=== PATIENT | male | born 1965 | race American Indian/Alaskan Native ===

== ENCOUNTER 2017-01-09 16:26 | Inpatient (IN) | payer OTHER ==
--- NOTE | 2017-01-09 16:50 | ED PDOC ---
Arrival/HPI - General Time Seen by Provider: 01/09/17 16:35 Historian: Patient - History of Present Illness Narrative History of Present Illness (Text): 01/09/17 16:45 51 year old male with a past medical history that includes diabetes sent to the emergency department by various exceptionalities teacher for worsening diabetic foot infection with worsening edema. Patient denies fever or chills. Currently denies chest pain or shortness of breath. PMD: Dr. Gleason Past Medical History - Provider Review Nursing Documentation Reviewed: Yes - Cardiac Hx Cardiac Disorders: Yes Hx Hypertension: Yes - Pulmonary Hx Respiratory Disorders: Yes Hx Pulmonary Embolism: Yes - Neurological Hx Neurological Disorder: No - HEENT Hx HEENT Disorder: No - Renal Hx Renal Disorder: No - Endocrine/Metabolic Hx Diabetes Mellitus Type 2: Yes - Hematological/Oncological Hx Blood Transfusions: Yes Hx Blood Transfusion Reaction: No - Integumentary Hx Dermatological Disorder: No - Musculoskeletal/Rheumatological Hx Musculoskeletal Disorders: No - Gastrointestinal Hx Gastrointestinal Disorders: No - Genitourinary/Gynecological Hx Genitourinary Disorders: No - Psychiatric Hx Psychophysiologic Disorder: No Hx Substance Use: No - Surgical History Hx Orthopedic Surgery: Yes - Anesthesia Hx Anesthesia Reactions: No Hx Malignant Hyperthermia: No Family/Social History - Physician Review Nursing Documentation Reviewed: Yes Family/Social History: Unknown Family HX Smoking Status: Never Smoked Hx Alcohol Use: No Hx Substance Use: No Allergies/Home Meds Allergies/Adverse Reactions: Allergies No Known Allergies Allergy (Verified 01/09/17 16:50) Review of Systems - Review of Systems Respiratory: absent: SOB Cardiovascular: absent: Chest Pain Gastrointestinal: absent: Nausea Skin: Other (right lower extremity edema/infection) Neurological: absent: Dizziness Physical Exam - Physical Exam Narrative Physical Exam (Text): Constitutional: No acute distress. Head: Normocephalic. Atraumatic. Eyes: PERRL. ENT: Moist mucous membranes. Musculoskeletal: No tenderness or swelling of extremities. Skin: Left lower extremity covered with dressing and boot. Neurologic: Alert, no focal deficit. Vital Signs Reviewed: Yes Vital Signs Temp Pulse Resp BP Pulse Ox 01/09/17 19:00 90 25 H 154/77 H 01/09/17 17:10 82 18 164/80 H 99 01/09/17 16:51 98.2 F 82 16 165/103 H 99 Temperature: Afebrile Blood Pressure: Hypertensive Pulse: Regular Respiratory Rate: Normal Appearance: Positive for: Well-Appearing, Non-Toxic, Comfortable Pain Distress: None Mental Status: Positive for: Alert and Oriented X 3 Medical Decision Making ED Course and Treatment: Impression: 51 year old male with a past medical history that includes diabetes sent to the emergency department by various exceptionalities teacher for worsening diabetic foot infection with worsening edema. Patient sent by Dr. Shetty, started on IV antibiotics, requesting US of the right lower extremity, requesting Dr. Molina consulted. Plan: -- EKG, Chest X-ray, XR right foot, US RLE -- Labs -- Reassess and disposition Progress Notes: EKG shows NSR at [address]/T changes, interpreted by me. PROCEDURE: Duplex Doppler examination of the left lower extremity. Clinical Informatics Manager : GLORIA LEWIS MD IMPRESSION: Limited examination, allowing for this nonocclusive thrombus in the common femoral vein. Chest X-ray Clinical Informatics Manager: Dr. Gloria Lewis IMPRESSION: No active pulmonary disease. Mild cardiomegaly. Dr. Gleason accepts to his service. - Lab Interpretations Lab Results: 01/09/17 17:30 01/09/17 17:30 Lab Results 01/09/17 17:30: WBC 6.0, RBC 3.43 L, Hgb 10.1 L, Hct 30.6 L, MCV 89.2, MCH 29.4 , MCHC 33.0, RDW 15.9 H, Plt Count 208, MPV 11.3 H, Gran % 54.9, Lymph % (Auto) 28.9, George % (Auto) 12.7 H, Eos % (Auto) 3.3, Baso % (Auto) 0.2, Gran # 3.29, Lymph # 1.7, George # 0.8 H, Eos # 0.2, Baso # 0.01, ESR QNS, PT 11.6, INR 1.07, APTT 26.7, Sodium 139, Potassium 4.0, Chloride 106, Carbon Dioxide 25, Anion Gap 12, BUN 17, Creatinine 1.1, Est GFR ( Amer) > 60, Est GFR (Non-Af Amer) > 60, Random Glucose 137 H, Calcium 9.0, Total Bilirubin 0.9, AST 23, ALT 23, Alkaline Phosphatase 76, Total Protein 8.3, Albumin 3.8, Globulin 4.4, Albumin/Globulin Ratio 0.9 L - RAD Interpretation Radiology Orders: 01/09/17 16:52 CHEST ONE VIEW [RAD] Stat FOOT LEFT 3 VIEWS ROUTINE [RAD] Stat DUPLEX LOWER EXTRM VEIN LEFT [US] Stat - EKG Interpretation Interpreted by ED Physician: Yes Type: 12 lead EKG - Medication Orders Current Medication Orders: Discontinued Medications Ceftaroline Fosamil 600 mg/ (Sodium Chloride) 100 mls @ 100 mls/hr IVPB STAT STA PRN Reason: Protocol Stop: 01/09/17 17:54 Last Admin: 01/09/17 17:31 Dose: 100 MLS/HR eMAR Start Stop Document 01/09/17 17:31 NI (Rec: 01/09/17 17:31 NI [id number]) Intravenous Solution Start Date 01/09/17 Start Time 17:31 End Date 01/09/17 End time 18:31 Total Infusion Time 60 - Scribe Statement The provider has reviewed the documentation as recorded by the Faina Arthur Provider Scribe Attestation: All medical record entries made by the Faina were at my direction and personally dictated by me. I have reviewed the chart and agree that the record accurately reflects my personal performance of the history, physical exam, medical decision making, and the department course for this patient. I have also personally directed, reviewed, and agree with the discharge instructions and disposition. Disposition/Present on Arrival - Present on Arrival Any Indicators Present on Arrival: No History of DVT/PE: No History of Uncontrolled Diabetes: No Urinary Catheter: No History Surgical Site Infection Following: None - Disposition Have Diagnosis and Disposition been Completed?: Yes Diagnosis: Diabetic foot infection Disposition: HOSPITALIZED Disposition Time: 18:58 Patient Plan: Admission Condition: FAIR
[2017-01-09] MEDS ORDERED: Ceftaroline 600 MG in Sodium Chloride 0.9% 100 ML IVPB STA (16:55)
[2017-01-09 17:36] LABS: ADD MANUAL DIFF? NO
[2017-01-09 17:40] LABS: BASO # 0.01 K/mm3 (0.0-2.0); BASO % 0.2 % (0.0-3.0); EOS # 0.2 (0.0-0.7); EOS % 3.3 % (1.5-5.0); GRAN # 3.29 (1.4-6.5); GRAN % 54.9 % (50.0-68.0); HEMATOCRIT 30.6 % (42.0-52.0); LYMPH # 1.7 (1.2-3.4); LYMPH % 28.9 % (22.0-35.0); MEAN CELL VOLUME 89.2 fL (80.0-105.0); MEAN CORPUSCULAR HEMOGLOBIN 29.4 pg (25.0-35.0); MEAN PLATELET VOLUME 11.3 fl (7.0-11.0); MONO # 0.8 (0.1-0.6); MONO % 12.7 % (1.0-6.0); PLATELET COUNT 208 10^3/uL (120.0-450.0); RED CELL DISTRIBUTION WIDTH 15.9 % (11.5-14.5)
[2017-01-09 17:49] LABS: ALKALINE PHOSPHATASE 76 U/L (38-133); ALT/SGPT 23 U/L (7-56); AST/SGOT 23 U/L (15-59); BILIRUBIN,TOTAL 0.9 mg/dL (0.2-1.3); BLOOD UREA NITROGEN 17 mg/dL (7-21); CARBON DIOXIDE 25 mmol/L (21-33); CHLORIDE 106 mmol/L (98-107); GFR AFRICAN-AMERICAN > 60; GLUCOSE,RANDOM 137 mg/dL (70-110); SODIUM 139 mmol/L (132-148); TOTAL PROTEIN 8.3 g/dL (5.8-8.3)
[2017-01-09 17:55] LABS: INR 1.07 (0.93-1.08); PARTIAL THROMBOPLASTIN TIME 26.7 Seconds (23.7-30.8)
[2017-01-09 18:01] LABS: ALB/GLOB RATIO 0.9 (1.1-1.8)
--- NOTE | 2017-01-09 19:00 | RAD ---
PROCEDURE: CHEST RADIOGRAPH, 1 VIEW HISTORY: foot infection COMPARISON: 10/25/2016 FINDINGS: LUNGS: The lungs are clear. PLEURA: No pneumothorax or pleural fluid seen. CARDIOVASCULAR: There is mild cardiomegaly and prominent central vasculature. OSSEOUS STRUCTURES: No significant abnormalities. VISUALIZED UPPER ABDOMEN: Normal. OTHER FINDINGS: None. IMPRESSION: No active pulmonary disease. Mild cardiomegaly.
--- NOTE | 2017-01-09 19:05 | US ---
PROCEDURE: Duplex Doppler examination of the left lower extremity. HISTORY: left leg swelling, r/o DVT COMPARISON: None available. TECHNIQUE: Duplex Doppler examination of the left lower extremity was performed. FINDINGS: Examination is limited due to subcutaneous edema. Allowing for this, there is a nonocclusive thrombus in the common femoral vein. There is normal color flow in the superficial femoral and popliteal veins. The peroneal and posterior tibial veins were not visualized due to severe subcutaneous edema. IMPRESSION: Limited examination, allowing for this nonocclusive thrombus in the common femoral vein.
[2017-01-09 21:42] LABS: ERYTHROCYTE SEDIMENTATION RATE QNS mm/hr (0.00-15.0)
[2017-01-09 23:50] LABS: URINE BILIRUBIN NEGATIVE (NEGATIVE); URINE BLOOD TRACE-LYSED (NEGATIVE); URINE GLUCOSE (UA) NEGATIVE (NEGATIVE); URINE KETONE NEGATIVE (NEGATIVE); URINE LEUKOCYTE ESTERASE NEGATIVE Leu/uL (NEGATIVE); URINE PROTEIN 100 mg/dL (<30 mg/dL); URINE UROBILINOGEN 0.2 E.U./dL (<1 E.U./dL)
[2017-01-10 00:07] LABS: URINE COLOR YELLOW (YELLOW)
[2017-01-10 00:08] LABS: URINE APPEARANCE SLIGHT-CLOUDY (CLEAR)
[2017-01-10 00:09] LABS: URINE EPITHELIAL CELLS 0 - 2 /hpf (0-5); URINE WBC 0 - 2 /hpf (0-6)
[2017-01-10 02:40] VITALS: BMI 50.7
--- NOTE | 2017-01-10 09:20 | RAD ---
PROCEDURE: Left Foot Radiographs. HISTORY: foot infection, r/o osteo COMPARISON: 10/11/2016 FINDINGS: BONES: Status post amputation 1st digit mid 1st metatarsal. There is yordy bony destruction of the head of the 2nd metatarsal. Suspect infectious arthritis with bony erosion at the lateral base of the 2nd proximal phalanx. There is periosteal reaction seen along the lateral aspect of the proximal diaphysis of the 3rd proximal phalanx suggestive of osteomyelitis. This could be confirmed with magnetic resonance imaging clinically warranted. No other bony destruction appreciated. Extensive soft tissue swelling over the dorsal and plantar aspect of the foot. JOINTS: Mild medial subluxation of the 2nd proximal phalanx at the metatarsal phalangeal joint Remaining joint spaces and articular surfaces are intact. SOFT TISSUES: As above OTHER FINDINGS: None. IMPRESSION: Amputation 1st digit mid 1st metatarsal. Bony erosion/ destruction head of 2nd metatarsal with possible infectious arthritis and erosion of base of 2nd proximal phalanx. Subluxation at 2nd metatarsal phalangeal joint. Extensive soft tissue swelling over the dorsal and plantar aspect of the left foot.
--- NOTE | 2017-01-10 09:33 | PN ---
DATE: 01/10/2017 This is a 51-year-old newly diabetic male seen for foot infection to his left foot. The patient has a history of having had partial foot amputation several months ago. He has a small ulceration on the second toe and he has one portion of the surgery incision which has failed to heal and has been macie cotter. [facility] complaining of increased swelling in his t high. He was admitted yesterday and he is positive for DVT. The patient denies any shortness of quinn ath and states that he is feeling better today. VITAL SIGNS: Shows temperature of 98.2, his pulse was 86, blood pressure is 149/85, and the respirat ions are 20. Respiratory effort is normal and nonlabored. MEDICATIONS: Noted on the DEC. He is on Teflaro. ALLERGIES: The patient has no known drug allergies. LABORATORIES: Reviewed. His white blood cell count is 6, the H and H is 10.1 and 30.6 and the plate lets are 208. Chemistry shows a random glucose of 137. The rest of the chemistry was within normal limits. His urine shows some protein, but no glucose in the urine. Microbiology was done yesterday at the [facility]. It is a pending Gram stain. He has had MRSA in the past and he is being i solated for that. His Gram stain shows few gram-positive cocci and few gram-positive bacilli and lisa y rare gram-negative rods. The patient's lower extremities were evaluated. He has a good pedal pulse on his right side with no open wounds. He wears compression stockings and they are in place at this time. He has nonpalpable pedal pulses on the left secondary to the edema, although during his last hospital stay, we did have arterial Doppler studies done and those Doppler studies were within normal limits. The patient did h ave a venous Doppler done at this visit and there is positive occlusion of the femoral vein. The ce chu's wound is unchanged since he was seen yesterday [facility]. He has chronic edema to the foot and leg, but the second toe is grossly edematous. There is a small ulceration on the me dial aspect of the PIPJ on that toe and there is a fissure along the incision line on that foot where , as noted before, it is still draining and there is still a sinus tract that goes down into that john t, although bone is not palpated. However, review of the foot x-rays taken yesterday show that there are erosive changes of the second metatarsal head. I did discuss with patient the treatment for osteomyelitis including surgical and/or medical with IV antibiotics. The patient did opt for surgical treatment. I did then call Dr. Mauro Reeves for consul tation to see if patient would be a candidate to have surgery while having the active blood clot. Dr Mercy Reeves saw the patient and I was with him when he saw the patient. He did state that patient was okay to go down for OR tomorrow and that we should start heparin 12 hours post-surgery and this w ill be followed by Coumadin 7.5 mg until we get him therapeutic. The patient is scheduled for the OR tomorrow and orders were put in for same. Meanwhile, dressing change was done using Maxorb, dry tariq rile dressing and ADRIENNE wraps. He is ambulatory and can get up and walk around. He has offloading shyla e at bedside as well as crutches. Trena Shetty DPM cc: [id number] TT: 01/10/2017 09:32:49 Confirmation # [id number] Dictation # [id number] en
--- NOTE | 2017-01-10 10:27 | HP ---
I was called by Dr. Shetty, the legal adviser, to put him on my service because they are going to do an amputation tomorrow. He is comfortable, resting in bed. His left foot is all wrapped up. He is a 51-year-old man who was sent in by Dr. Shetty, the legal adviser, for diabetic foot infection. He know s he is going for surgery tomorrow. No fevers or chills. PAST MEDICAL HISTORY: Hypertension, pulmonary embolism, deep venous thrombosis, he is morbidly obese and he has had blood transfusions in the past. PAST SURGICAL HISTORY: He has had orthopedic surgeries. FAMILY HISTORY: There is hypertension in the family. SOCIAL HISTORY: No smoking. No drinking. No drugs. ALLERGIES: No known drug allergies. MEDICATIONS: He takes insulin and a vitamin. REVIEW OF SYSTEMS: He has no vision changes, no hearing changes, no sore throat, no neck pain, no ch est pain, no palpitations, no shortness of breath, no coughing, no abdominal pain, no diarrhea or con stipation. He has a left leg that is all swollen and it is all bandaged up with infection. PHYSICAL EXAMINATION: VITAL SIGNS: He has 98.2 temp, 90 pulse, 25 respiratory rate, 154/77 blood pressure, 99% O2 sat on r oom air. HEENT: Head is atraumatic, normocephalic. No acute distress. Comfortable. Talking. Alert and zev ented x 3. His pupils are equal, reactive to light. Extraocular muscles are intact. Throat is mois t, no erythema. NECK: Supple, no JVD. HEART: Regular rate. LUNGS: With decreased breath sounds, but clear to auscultation. ABDOMEN: Morbidly obese, soft, nontender, positive bowel sounds. EXTREMITIES: Left leg is completely dressed from the foot to the knee in an Unna boot. NEUROLOGIC: He is alert and oriented x 3. Cranial nerves II-XII grossly intact. SKIN: Warm and dry. He has a bad left third toe. It is an osteomyelitis. He will be having surgery tomorrow. LABORATORY DATA: He has a 6 white count, 10.1 hemoglobin, 30.6 hematocrit, with 208 platelets. INR is 1.07. Sodium 139, potassium is 4, BUN 17, creatinine 1.1, GFR is greater than 60, sugar is 137, c alcium is 9. Total bili is 0.9, AST is 23, ALT is 23, alk phos 76, total protein is 8.3, albumin is 3.8. Urine is trace. He has a foot x-ray which showed amputation of first digit and first metatarsal, bone erosion and clark truction of head of second metatarsal, possible infectious arthritis and erosion of the base of the s econd proximal phalanx, subluxation of the second metatarsophalangeal joint. Ultrasound shows a nono cclusive thrombus. Chest x-ray shows cardiomegaly. PLAN: Watch his blood sugars, his blood pressure, and he will be medically cleared tomorrow for surg ascencion as per Dr. Mauro Reeves. He will start heparin and Coumadin on the outpatient when we are done wi th the surgery. This was discussed with Dr. Shetty. Will check his labs tomorrow. Osteomyelitis of the left foot. Kevin Gleason DO cc: [id number] TT: 01/10/2017 10:26:31 jayesh
--- NOTE | 2017-01-10 10:49 | CON ---
DATE: 01/10/2017 CHIEF COMPLAINT AND HISTORY OF PRESENT ILLNESS: This is a 51-year-old gentleman who was admitted for a nonhealing ulcer of the left foot and LLE DVT. He has a history of diabetes. 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 He had a previous left digital amputation with a small area that is not healing with exposed bone. He needs local resection by Dr. Shetty. PAST MEDICAL HISTORY: Significant for a DVT approximately 20 years ago. He cannot remember how long he was on anticoagulation. His legs are chronically swollen. He is somewhat compliant with his compression stockings. His recent CHE/PVR exam was relatively normal. Though difficult, his pedal pulses are palpable. I discussed the situation at bedside with the patient and Dr. Shetty. His recent Doppler ultrasound demonstrates DVT in the left femoral and popliteal veins. It is a very limited study and it is difficult to ascertain whether this is acute or chronic or a combination of both. He has had more associated swelling on the left. No pulmonary symptoms. The patient needs to have the podiatric procedure done while he is hospitalized. I agree with IV heparin and transition to Coumadin. He needs to be compliant every day with his class 1 compression stockings. He should remain on Coumadin for at least 18 months and possibly indefinitely since this is his 2nd thromboembolic event. We had a very yordy discussion about diet, exercise, and weight loss. Mauro Reeves MD cc: [id number] TT: 01/10/2017 10:48:19 Confirmation # [id number] Dictation # [id number] lex MTDD
[2017-01-10] MEDS: Insulin Reg-HIGH-Coverage SC SCH ×3 (12:35→21:32)
--- NOTE | 2017-01-10 16:28 | CP.PCM.CON ---
History of Present Illness - History of Present Illness History of Present Illness: 51 year old male with PMH of DM, morbid obesity with BMI 51, HTN, history of pulmonary embolism, history of left hallux osteomyelitis, S/P right 1st ray amputation in 2016 came in to the ED sent by his tipple tender for worsening 2nd toe infection and swelling on the left foot. He denies fever or chills, no nausea or vomiting, no chest pain, no headache or dizziness, no chest pain, no abdominal pain, no sore throat, no cough or colds, no diarrhea, no dysuria. Infectious Diseases consult is requested to further evaluate and manage. Review of Systems - Review of Systems All systems: reviewed and no additional remarkable complaints except (as per HPI ) Past Patient History - Past Medical History & Family History Past Medical History?: Yes Past Family History: Reviewed and not pertinent - Past Social History Smoking Status: Never Smoked Alcohol: None Drugs: Denies Home Situation {Lives}: With Family - CARDIAC Hx Cardiac Disorders: Yes Hx Hypertension: Yes - PULMONARY Hx Respiratory Disorders: Yes Hx Pulmonary Embolism: Yes - NEUROLOGICAL Hx Neurological Disorder: No - HEENT Hx HEENT Problems: No - RENAL Hx Chronic Kidney Disease: No - ENDOCRINE/METABOLIC Hx Diabetes Mellitus Type 2: Yes - HEMATOLOGICAL/ONCOLOGICAL Hx Blood Transfusions: Yes Hx Blood Transfusion Reaction: No - INTEGUMENTARY Hx Dermatological Problems: No - MUSCULOSKELETAL/RHEUMATOLOGICAL Hx Musculoskeletal Disorders: No - GASTROINTESTINAL Hx Gastrointestinal Disorders: No - GENITOURINARY/GYNECOLOGICAL Hx Genitourinary Disorders: No - PSYCHIATRIC Hx Psychophysiologic Disorder: No Hx Substance Use: No - SURGICAL HISTORY Hx Orthopedic Surgery: Yes - ANESTHESIA Hx Anesthesia Reactions: No Hx Malignant Hyperthermia: No Meds Allergies/Adverse Reactions: Allergies Allergy/AdvReac Type Severity Reaction Status Date / Time No Known Allergies Allergy Verified 01/09/17 16:50 Physical Exam - Constitutional Appears: Non-toxic, No Acute Distress - Head Exam Head Exam: NORMAL INSPECTION - ENT Exam ENT Exam: Mucous Membranes Moist - Neck Exam Neck exam: Negative for: Lymphadenopathy, Meningismus - Respiratory Exam Respiratory Exam: Decreased Breath Sounds - Cardiovascular Exam Cardiovascular Exam: +S1, +S2 - GI/Abdominal Exam GI & Abdominal Exam: Soft. absent: Tenderness - Extremities Exam Additional comments: left foot with dry dressings in place Results - Vital Signs Recent Vital Signs: Last Vital Signs Temp 98.2 F 01/09/17 16:51 Pulse 90 01/09/17 19:00 Resp 25 H 01/09/17 19:00 BP 154/77 H 01/09/17 19:00 Pulse Ox 99 01/09/17 17:10 - Labs Result Diagrams: 01/09/17 17:30 01/09/17 17:30 Assessment & Plan - Assessment and Plan (Free Text) Plan: Assessment left 2nd and 3rd toe and foot skin and skin structure infection with probable osteomyelitis on the 2nd and 3rd digits Left lower extremity deep venous thrombosis DM morbid obesity with BMI 51 HTN history of pulmonary embolism history of left hallux osteomyelitisS/P right 1st ray amputation in 2016 Plan Started patient on Teflaro pending blood and wound cx Will follow up plan of Podiatry started on anticoagulation for DVT Will follow clinically
[2017-01-10] MEDS: Insulin Lispro (humaLOG) MIX 75/25(10 ml) SC SCH (17:34)
--- NOTE | 2017-01-10 18:32 | CARD ---
APPROVED REPORT EKG Measurement Heart [id number] IN [id number] [id number] <Conclusion> Normal sinus rhythm Prolonged QT Abnormal ECG
[2017-01-11 07:14] LABS: HEMATOCRIT 27.6 % (42.0-52.0); MEAN CORPUSCULAR HGB CONC 32.6 g/dl (31.0-37.0); MEAN PLATELET VOLUME 10.3 fl (7.0-11.0); RED CELL DISTRIBUTION WIDTH 15.6 % (11.5-14.5)
[2017-01-11 07:31] LABS: ALB/GLOB RATIO 0.8 (1.1-1.8); ALKALINE PHOSPHATASE 73 U/L (38-133); ALT/SGPT 30 U/L (7-56); AST/SGOT 33 U/L (15-59); BILIRUBIN,TOTAL 0.7 mg/dL (0.2-1.3); BLOOD UREA NITROGEN 16 mg/dL (7-21); CALCIUM 8.6 mg/dL (8.4-10.5); CARBON DIOXIDE 27 mmol/L (21-33); CHLORIDE 107 mmol/L (98-107); GFR AFRICAN-AMERICAN > 60; GLUCOSE,RANDOM 102 mg/dL (70-110); POTASSIUM 3.8 mmol/L (3.6-5.0); SODIUM 139 mmol/L (132-148); TOTAL PROTEIN 7.2 g/dL (5.8-8.3)
[2017-01-11] MEDS: Insulin Reg-HIGH-Coverage SC SCH (08:00)
[2017-01-11] MEDS: Insulin Lispro (humaLOG) MIX 75/25(10 ml) SC SCH (09:21)
--- NOTE | 2017-01-11 09:49 | PN ---
DATE: 01/11/2017 I saw the patient this morning. He is very tired. Slept well, comfortable in bed. He is going for surgery today. I believe he is to have a toe amputated by podiatry. He is on , insulin, and Norvasc. He has no complaints of pain or shortness of breath at this time. He has a 98.7 temp, 84 pulse, 149/69 blood pressure, 20 respiratory rate, 95% O2 sat on room air. HEAD: Atraumatic, normocephalic. HEART: Regular rate. LUNGS: Decreased breath sounds, but clear. ABDOMEN: Soft, morbidly obese. EXTREMITIES: Wrapped up on left leg. He has a 6 white count, 9 hemoglobin, 27.6 hematocrit, with a 171 platelets. INR is 1.07. He has a 139 sodium, potassium 3.8, BUN 16, creatinine 1.1. GFR is greater than 60. Sugar is 102, calcium is 8.6, total bili is 0.7. AST is 33 , ALT is 30, alk phos 73, total protein 7.2. He is being seen by infectious disease, interventional radiologist, and svp operations. He will be on IV heparin, then transitioned to Coumadin. He will have compression stockings. He needs to have weight loss, and he should go for amputation today, then be started on heparin and Coumadin. This a progress note on the patient with left leg ulcer, who is obese, with osteomyelitis toes, DVT, diabetes, morbid obesity. He has a history of pulmonary embolism, therefore, will need to be on Coumadin for at least 18 months. Kevin Gleason DO cc: [id number] TT: 01/11/2017 09:42:11 Confirmation # [id number] Dictation # [id number] rachel 01/11/2017 08:48:49 SANTINO
[2017-01-11] MEDS ORDERED: Lidocaine 2% Inj (20ml) ONE (10:26)
[2017-01-11] MEDS ORDERED: Midazolam 2 MG/2 ML VIAL ONE ×2 (10:33→12:01)
[2017-01-11] MEDS ORDERED: Propofol 10 mg/ml Inj (20 ML) ONE (10:33)
[2017-01-11] MEDS ORDERED: HYDROmorphone 0.5 mg/0.5 ml ISec IVP PRN (13:26)
[2017-01-11] MEDS ORDERED: Oxycodone/Acetaminophen 5/325 mg Tab PO PRN ×2 (13:26)
--- NOTE | 2017-01-11 13:26 | PCM.SURG1 ---
Surgeon's Initial Post Op Note - Surgeon's Notes Surgeon: Dr. Shetty Licensed Nuclear Operator: Dr. Kennedy PGY-1 Type of Anesthesia: IV Sedation, Local Anesthesia Administered By: Dr. Pabon Pre-Operative Diagnosis: left foot osteomyelitis of 2nd toe Operative Findings: see dictation. 20CC 2% lidocaine. 2-0 vicryl, 3-0 nylon, mel Post-Operative Diagnosis: same Operation Performed: left foot 2nd digit amputation iwth metatarsal head resection Specimen/Specimens Removed: bone Estimated Blood Loss: EBL {In ML}: 100 Blood Products Given: N/A Drains Used: Henry Kaye Post-Op Condition: Good Date of Surgery/Procedure: 01/11/17 Time of Surgery/Procedure: 11:00
[2017-01-11] MEDS ORDERED: Lactated Ringer's 1,000 ML IV SCH (13:30)
--- NOTE | 2017-01-11 14:45 | RAD ---
PROCEDURE: Left Foot Radiographs. HISTORY: s/p left foot surgery COMPARISON: 01/09/2017 FINDINGS: BONES: Status post amputation at the level of the mid 2nd metatarsal. Surgical clips and drain in place. Prior amputation 1st metatarsal JOINTS: Normal. SOFT TISSUES: Normal. OTHER FINDINGS: None. IMPRESSION: As above
--- NOTE | 2017-01-11 15:02 | OP ---
PROCEDURE DATE: 01/11/2017 SURGEON: Dr. Trena Shetty COMMUNITY SERVICE AIDE: Dr. Rodriguez, PGY-1 ANESTHESIOLOGIST: Dr. Pabon ANESTHESIA: IV sedation with local. PREOPERATIVE DIAGNOSIS: Left foot second digit osteomyelitis with metatarsal head osteomyelitis. POSTOPERATIVE DIAGNOSIS: Left foot second digit osteomyelitis with metatarsal head osteomyelitis. PROCEDURE PERFORMED: Left foot second digit amputation with partial metatarsal head resection. INDICATIONS: The patient is a 51-year-old male with the above diagnosis. The patient has exhausted all conservative treatment at this time and now requires surgical intervention. The patient signed t he consent after careful explanation of risks, benefits, complications and alternatives for surgical procedure. No guarantees were given nor implied. N.p.o. status was confirmed prior to taking the pa tient to the OR. The patient was brought into the operating room and placed on the operating room ta ble in a supine position. Timeout was performed for identification of the correct patient and proced ure. After induction of IV sedation, the patient received a total of 20 mL of 2% lidocaine plain in a loca l block type fashion to the left foot. The left foot was then prepped and draped in normal sterile m [place] and the procedure began. No tourniquet was used during the procedure. Attention was then dire cted to the second metatarsal of the left foot, where a linear longitudinal incision was made startin g at the midway just proximal to the second metatarsophalangeal joint, extending all the way around t he distal aspect of the second digit in a racket-type incision and extended down around the toe more proximally to connect the incision circumferentially. This was using a #15 blade. The incision was then extended down through subcutaneous layers and tissues down to the level of bone. Using a bone c lamp to stabilize the toe, the second digit was then disarticulated from the foot at the level of the second metatarsophalangeal joint. The specimen was then passed from the operative field and sent to pathology. Next, using a sagittal saw, the metatarsal head was resected just at the metatarsal neck and this bone was sent to pathology. Using a fresh 15 blade, all necrotic and nonviable tissue was then excisionally debrided from the surgical site. The surgical site was then copiously flushed with sterile saline. At this time, the subcutaneous tissue was reapproximated using 2-0 Vicryl and the s kin layers were then reapproximated and coapted using 3-0 nylon using simple suture technique as well as skin mel to reapproximate the skin edges. The left foot was then dressed with Adaptic, 4 x 4 gauze, Kerlix, and ADRIENNE. A STEWART drain was placed in the incision site and the drain was left attached to the ADRIENNE bandage on the outside. Immediate capillary refill time was noted to the surgical site. POSTOPERATIVE CONDITION: The patient tolerated the anesthesia and procedure well and was escorted to the recovery room with vital signs stable and neurovascular status intact to the left foot. The pat ient is to remain weightbearing as tolerated to the left lower extremity. Podiatry will continue to follow the patient while the patient remains inhouse. The patient will follow up with Dr. Shetty up on discharge. TANISHA RODRIGUEZ DPM Trena Shetty DPM cc: [id number] TT: 01/11/2017 15:01:03 en
[2017-01-11 16:04] LABS: HEMATOCRIT 27.7 % (42.0-52.0); MEAN CELL VOLUME 90.5 fL (80.0-105.0); MEAN CORPUSCULAR HEMOGLOBIN 30.1 pg (25.0-35.0); MEAN CORPUSCULAR HGB CONC 33.2 g/dl (31.0-37.0); MEAN PLATELET VOLUME 10.5 fl (7.0-11.0); RED CELL DISTRIBUTION WIDTH 15.7 % (11.5-14.5); WHITE BLOOD COUNT 5.7 10^3/ul (4.5-11.0)
--- NOTE | 2017-01-12 11:33 | PN ---
DATE: 01/12/2017 This 51-year-old male status post one day amputation of the second toe and second metatarsal on his left foot. The patient also has an active DVT and he had been on hold with his heparin and Coumadin until the surgery could be done. The patient had a lot of bleeding during the surgery. He had at le ast 150-200 mL blood loss. We did do a type and cross and we did CBC. His labs showed that his whit e blood cell count is 5.7, the RBCs are 3.06, the hemoglobin was 9.2 and the hematocrit was 27.7. Th e patient's microbiology, from 01/09, Staph aureus and Enterococcus faecalis, and he is presently on a mpicillin and sulbactam, Unasyn, as per infectious disease. PHYSICAL EXAMINATION: The patient's dressing today was noted to be clean, dry, and intact. He does have a STEWART drain in, which is still pulling a small amount of blood. There is probably about 3-4 mL i n the bulb at this time and this blood is not clotted PLAN OF TREATMENT: The patient is started on the heparin today. He is also started on Coumadin as p er orders of Dr. Mauro Reeves. He is to be started on the 7.5 mg and that was supposed to start the s terrance day as the heparin. Heparin was started this morning and I started the Coumadin at this visit. I am going to leave the STEWART drain in place, in case we have any extra bleeding from site. The patient is allowed out of bed to walk, partial weightbearing with his wedge shoe and his crutches. He was a lso ordered to do that yesterday and he states he was up and about yesterday. The patient's dressing is to stay in place. It will be changed on Saturday, at the time when the drain will be pulled. Trena Shetty DPM cc: [id number] TT: 01/12/2017 11:33:07 Confirmation # [id number] Dictation # [id number]
[2017-01-12 12:26] LABS: INR 1.09 (0.93-1.08)
[2017-01-12] MEDS: Ampicillin/Sulbactam 3 GM in Sodium Chloride 0.9% 100 ML IVPB SCH ×3 (12:26→23:00)
--- NOTE | 2017-01-12 12:49 | PN ---
DATE: 01/12/2017 The patient is a 52-year-old male status post revision with the reel slitter, currently comfortable, no pain, no shortness of breath, no nausea, no vomiting. He is tolerating p.o. intake. He is not havi ng any pain; however, he still has drains in place. PHYSICAL EXAMINATION: VITAL SIGNS: Blood pressure is 131/72, pulse rate of 92, temperature is 99.3, O2 saturation is 99 on room air. HEENT: Normocephalic, atraumatic. [place] conjunctivae, nonicteric sclerae. NECK: No JVD, no thyromegaly. CARDIOVASCULAR: Regular rate and rhythm. S1, S2 appreciated. No S3 noted. LUNGS: Bilateral air entry is positive. No wheezes or rhonchi. ABDOMEN: Nondistended, nontender. Positive for obesity. EXTREMITIES: Distally, pulses are +2. He does have a left foot bandage in place. LABORATORY DATA: WBCs of 5.7, hemoglobin of 9.2, hematocrit of 27.7, platelets of 160. INR currentl y is 1.09. Chemistry and LFTs are within normal limits. Urine culture is negative. Blood cultures are negative. ASSESSMENT: Positive for osteomyelitis of the left foot, status post revision with the reel slitter, p ositive for history of deep venous thrombosis in the past as well as diabetes mellitus. PLAN: At this time, we will continue his current treatment. He is currently on warfarin as well as heparin. We will continue pain medication as well as IV antibiotics. Seen by ID and we will follow very closely. Willi Powell MD cc: [id number] TT: 01/12/2017 12:48:57 Confirmation # [id number] Dictation # [id number] tn
--- NOTE | 2017-01-12 16:21 | CP.PCM.PN ---
Subjective - Date & Time of Evaluation Date of Evaluation: 01/12/17 Time of Evaluation: 10:50 - Subjective Subjective: Comfortable in bed, not in distress, no fevers overnight, had surgery on his left foot yesterday, no nausea, no diarrhea, less pain in the left foot. Objective - Vital Signs/Intake and Output Vital Signs (last 24 hours): Temp Pulse Resp BP Pulse Ox 98.7 F 84 20 150/70 95 01/11/17 08:33 01/11/17 09:25 01/11/17 08:33 01/11/17 09:25 01/11/17 08:33 Intake and Output: 01/11/17 01/11/17 06:59 18:59 Intake Total 420 Balance 420 - Medications Medications: Current Medications Amlodipine Besylate (Norvasc) 2.5 mg PO DAILY [facility] Last Admin: 01/11/17 09:25 Dose: 2.5 mg Ceftaroline Fosamil 400 mg/ (Sodium Chloride) 100 mls @ 100 mls/hr IVPB Q12 [facility] PRN Reason: Protocol Stop: 01/17/17 10:01 Last Admin: 01/11/17 09:26 Dose: 100 mls/hr Insulin Human Regular (Humulin R High) 0 units SC ACHS [facility] PRN Reason: Protocol Last Admin: 01/11/17 08:00 Dose: Not Given Insulin Lispro Protam/Lispro Human (Humalog Mix 75/25) 12 units SC BID [facility] Last Admin: 01/11/17 09:21 Dose: Not Given - Labs Labs: 01/11/17 06:45 01/11/17 06:45 PT 11.6 Seconds (9.9-11.8) 01/09/17 17:30 INR 1.07 (0.93-1.08) 01/09/17 17:30 APTT 26.7 Seconds (23.7-30.8) 01/09/17 17:30 - Constitutional Appears: Non-toxic, No Acute Distress - Head Exam Head Exam: NORMAL INSPECTION - ENT Exam ENT Exam: Mucous Membranes Moist - Neck Exam Neck Exam: absent: Lymphadenopathy, Meningismus - Respiratory Exam Respiratory Exam: Decreased Breath Sounds - Cardiovascular Exam Cardiovascular Exam: +S1, +S2 - GI/Abdominal Exam GI & Abdominal Exam: Soft. 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
[2017-01-12] MEDS: Insulin Reg-HIGH-Coverage SC SCH ×2 (17:14→21:34)
[2017-01-12] MEDS: Insulin Lispro (humaLOG) MIX 75/25(10 ml) SC SCH (17:14)
[2017-01-13] MEDS: Ampicillin/Sulbactam 3 GM in Sodium Chloride 0.9% 100 ML IVPB SCH ×4 (06:03→22:59)
[2017-01-13] MEDS: Insulin Reg-HIGH-Coverage SC SCH ×4 (07:45→22:00)
[2017-01-13] MEDS: Insulin Lispro (humaLOG) MIX 75/25(10 ml) SC SCH ×2 (09:07→17:24)
--- NOTE | 2017-01-13 10:54 | PN ---
DATE: 01/13/2017 The patient is in bed in no acute distress. PHYSICAL EXAMINATION: VITAL SIGNS: Temperature is 98, blood pressure is 120/70, respiratory rate of 16. HEENT: Unremarkable. NECK: Supple. LUNGS: Have decreased breath sounds. HEART: Normal S1, S2. ABDOMEN: Soft, nontender. LABORATORY DATA: Reveals a white count of 5.7, hemoglobin of 9, platelets of 160. Coagulation is no shahriar. Chemistries reveal the BUN of 16, creatinine of 1.1. C-reactive protein is greater than 15. U rinalysis is noted. ASSESSMENT AND PLAN: This is a 51-year-old male with a left second and third toe foot and skin and s oft tissue infection, probable osteomyelitis in second and third toe digit status post surgery, posto perative day #2. Growing enterococcus and methicillin-susceptible Staphylococcus aureus, was seen ea ju today. He is comfortable, tolerating the antibiotic in the face of morbid obesity with a body mass index of 51 with hypertension, diabetes, history of pulmonary emboli on Unasyn pending OR cultur es and pathology. Review of the orders confirms the patient to be on Unasyn. The patient is also on Coumadin and heparin and Percocet and Tylenol and insulin. We will follow closely with you. Thus f ar, the blood cultures and urine cultures are negative. The OR cultures and pathology are pending. Monico Molina MD cc: [id number] TT: 01/13/2017 10:53:54 Confirmation # [id number] Dictation # [id number] mn
--- NOTE | 2017-01-13 11:37 | PN ---
DATE: 01/13/2017 I know the patient well. He is comfortable. He is status post left second toe amputation secondary to osteomyelitis and also left DVT. He should be started on heparin and Coumadin. He is being seen by infectious disease and podiatry. He is comfortable in bed, no pain. He is eating. He has got the left foot bandaged with a drain with some blood coming out. PHYSICAL EXAMINATION: VITAL SIGNS: She has a 98.5 temp, 91 pulse, 121/67 blood pressure, 20 respiratory rate, 94% O2 sat on room air. HEAD: Atraumatic, normocephalic. Throat is moist. NECK: Supple. HEART: Regular rate. LUNGS: Have decreased breath sounds bilaterally, but clear to auscultation. ABDOMEN: Soft, morbidly obese, nontender, positive bowel sounds. No guarding, no rebound. EXTREMITIES: The right leg was okay. The left leg is bandaged with a drain with blood coming into the drain. MEDICATIONS: He is currently on Zosyn, warfarin, heparin, Humalog, Humulin, Norvasc, Percocet, and Tylenol. LABORATORY DATA: He has a 5.7 white count, 9.2 hemoglobin, 27.7 hematocrit with 160 platelets. INR is 1.09. We have got to get that up. Sodium 139, potassium 3.8, BUN 16, creatinine 1.1, GFR is greater than 60, sugar is 102, calcium is 8.6, total bili is 0.7, AST is 33, ALT is 30,. His blood sugar is 152. MEDICATIONS: I will increase his Coumadin to 10 mg daily. I will order labs for tomorrow. Recheck his INR and his blood count and hopefully, he will improve, and as per podiatry, he would have to change the bandage tomorrow, I believe. He is here for a left second toe amputation for osteomyelitis, obesity, left DVT , pulmonary hypertension, diabetes, and obesity. Kevin Gleason DO cc: [id number] TT: 01/13/2017 11:36:35 Confirmation # [id number] Dictation # [id number] mn MTDD
[2017-01-14] MEDS: Ampicillin/Sulbactam 3 GM in Sodium Chloride 0.9% 100 ML IVPB SCH ×4 (05:31→23:01)
[2017-01-14 06:07] LABS: HEMATOCRIT 24.5 % (42.0-52.0); MEAN CELL VOLUME 89.7 fL (80.0-105.0); MEAN CORPUSCULAR HEMOGLOBIN 29.3 pg (25.0-35.0); MEAN CORPUSCULAR HGB CONC 32.7 g/dl (31.0-37.0); MEAN PLATELET VOLUME 10.4 fl (7.0-11.0); RED CELL DISTRIBUTION WIDTH 15.7 % (11.5-14.5)
[2017-01-14 06:19] LABS: INR 1.06 (0.93-1.08)
[2017-01-14 06:46] LABS: ALB/GLOB RATIO 0.8 (1.1-1.8); ALKALINE PHOSPHATASE 61 U/L (38-133); ALT/SGPT 32 U/L (7-56); AST/SGOT 24 U/L (15-59); BILIRUBIN,TOTAL 0.5 mg/dL (0.2-1.3); BLOOD UREA NITROGEN 17 mg/dL (7-21); CALCIUM 8.4 mg/dL (8.4-10.5); CARBON DIOXIDE 27 mmol/L (21-33); CHLORIDE 106 mmol/L (95-110); GFR AFRICAN-AMERICAN > 60; GLUCOSE,RANDOM 143 mg/dL (70-110); POTASSIUM 4.2 mmol/L (3.6-5.0); SODIUM 140 mmol/L (132-148); TOTAL PROTEIN 7.2 g/dL (5.8-8.3)
[2017-01-14] MEDS: Insulin Reg-HIGH-Coverage SC SCH ×4 (08:05→22:03)
--- NOTE | 2017-01-14 08:43 | PN ---
DATE: 01/14/2017 I saw the patient this morning with the project internship with the foot unbandaged. You can see the mel in place where they did the toe amputation. He is fairly comfortable. Slept fairly well. He is on Zosyn, Coumadin, heparin, insulin, Lasix, Norvasc, Percocet, Tylenol, and Coumadin. He is in no pain. He understands the situation. PHYSICAL EXAMINATION: VITAL SIGNS: He has a 98.7 temp, 89 pulse, 139/80 blood pressure, 20 respiratory rate, 97% O2 sat on room air. HEENT: Head is atraumatic, normocephalic. Throat is moist. NECK: Supple. HEART: Regular rate. LUNGS: Clear to auscultation with decreased breath sounds. ABDOMEN: Morbidly obese, nontender, positive bowel sounds. EXTREMITIES: Left foot is wrapped up now. It is very swollen. It has a drain in there with some bl ood. LABORATORY DATA: He has a 6 white count, hemoglobin dropped to 8 (he lost 2 grams of hemoglobin; the re was some bleeding and he is getting IVs), hematocrit 24.7, platelets are 179. He will get 2 units of packed red blood cells today with Lasix 40 IV x 1 dose in between. He has a 140 sodium, potassiu m 4.2, BUN 17, creatinine 1.1, GFR is greater than 60, sugar is 1.3, calcium is 8.4. Total bili is 0 .5, AST is 24, ALT is 32, alkaline phosphatase 64, total protein 7.2. He is being seen by infectious disease and podiatry. He has a left second and third toe osteomyeliti s, postoperative day 2. He is on IV antibiotics. He is anemic too. He is going to get 2 units of p acked red blood cells today with Lasix 40 mg IV x 1 in between. Want to get the okay from infectious disease to change him to tablets. We will discharge him. I think podiatry is happy with the surger y of the amputations. I will continue aggressive treatment and care for his osteomyelitis of the lef t foot toes and the left deep venous thrombosis. He is on Coumadin 10 mg. His INR is 1.06. Will co ntinue with the Coumadin 10 mg. Kevin Gleason DO cc: [id number] TT: 01/14/2017 08:43:10 Confirmation # [id number] Dictation # [id number] mn
--- NOTE | 2017-01-14 09:11 | CP.PCM.PN ---
Subjective - Date & Time of Evaluation Date of Evaluation: 01/14/17 Time of Evaluation: 08:25 - Subjective Subjective: 51 year old male patient with PMHx of DM, obesity (BMI 51), HTN, pulmonary embolism, left hallux osteomyelitis, LEFT 1st ray amputation was seen at bedside this morning with attending Dr. Shetty. The patient is 3 days s/p left foot 2nd digit amputation with metatarsal head resection. Patient was resting comfortably in bed with no reports of acute overnight distress. Dressing to Left lower extremity remains c/d/i. Patient does not c/o any pain to bilateral lower extremities. Patient denies of any N/V/F/C or SOB today Objective - Vital Signs/Intake and Output Vital Signs (last 24 hours): Temp Pulse Resp BP Pulse Ox 98.7 F 89 20 139/80 97 01/13/17 18:00 01/13/17 18:00 01/13/17 18:00 01/13/17 18:00 01/13/17 18:00 Intake and Output: 01/14/17 01/14/17 06:59 18:59 Intake Total 540 Output Total 50 Balance 490 - Medications Medications: Current Medications Acetaminophen (Tylenol 325mg Tab) 650 mg PO Q4H PRN PRN Reason: Pain, Mild (1-3) Amlodipine Besylate (Norvasc) 2.5 mg PO DAILY [facility] Last Admin: 01/13/17 09:06 Dose: 2.5 mg Furosemide (Lasix) 40 mg IVP ONCE ONE Stop: 01/14/17 11:01 Heparin Sodium (Porcine) (Heparin) 5,000 units SC Q12 [facility] PRN Reason: Protocol Last Admin: 01/13/17 21:27 Dose: 5,000 units Ampicillin Sodium/Sulbactam (Sodium 3 gm/ Sodium Chloride) 100 mls @ 200 mls/ hr IVPB Q6 [facility] PRN Reason: Protocol Stop: 01/20/17 12:01 Last Admin: 01/14/17 05:31 Dose: 200 mls/hr Insulin Human Regular (Humulin R High) 0 units SC ACHS [facility] PRN Reason: Protocol Last Admin: 01/14/17 08:05 Dose: Not Given Insulin Lispro Protam/Lispro Human (Humalog Mix 75/25) 12 units SC BID [facility] Last Admin: 04/02/17 17:24 Dose: 12 unit Oxycodone/Acetaminophen (Percocet 5/325 Mg Tab) 1 tab PO Q4H PRN PRN Reason: Pain, moderate (4-7) Stop: 01/14/17 13:27 Oxycodone/Acetaminophen (Percocet 5/325 Mg Tab) 2 tab PO Q4H PRN PRN Reason: Pain, severe (8-10) Stop: 01/14/17 13:27 Warfarin Sodium (Coumadin) 10 mg PO 1800 [facility] PRN Reason: Protocol Last Admin: 01/13/17 17:23 Dose: 10 mg - Labs Labs: 01/14/17 05:30 01/14/17 05:30 PT 11.4 Seconds (9.9-11.8) 01/14/17 05:30 INR 1.06 (0.93-1.08) 01/14/17 05:30 APTT 26.7 Seconds (23.7-30.8) 01/09/17 17:30 - Constitutional Appears: Well, Non-toxic, No Acute Distress - Extremities Exam Additional comments: Left lower extremity exam DERM: Incision site appears well coapted with all the sutures intact. Drain suction was intact. No active bleeding is noted. Mild erythema noted around the surgical site noted. Open ulceration noted to anterior aspect of Left leg proximal to ankle, measuring 4cmx 3cmx 0.2cm with granular base. Mild sero-sanguinous drainage is noted. No purulent discharge is noted. VASC: +1 pitting edema noted to left lower extremity extending from foot to lower leg. No calf tenderness noted. NEURO: Gross sensation diminished ORTHO: No pain on palpation to joints to left lower extremity. MMT 5/5 with decreased passive ROM to joints to distal to ankle - Neurological Exam Neurological Exam: Alert, Awake, Oriented x3 - Psychiatric Exam Psychiatric exam: Normal Affect, Normal Mood - Skin Skin Exam: Normal Color, Warm Assessment and Plan - Assessment and Plan (Free Text) Assessment: 51 year old male patient is 3 days s/p left foot 2nd digit amputation with metatarsal head resection. Plan: Patient was seen, evaluated and treated at bedside with attending Dr. Shetty labs and vitals reviewed Drain suction from the amputation site was removed today. Sutures left intact. Left foot dressed with DSD, leg ulcer dressed with Maxorb and DSD. [place] compression dressing was applied to the Left lower extremity Continue IV Abx per ID Podiatry will continue to follow in-house
[2017-01-14] MEDS: Insulin Lispro (humaLOG) MIX 75/25(10 ml) SC SCH ×2 (09:47→17:30)
[2017-01-15] MEDS: Ampicillin/Sulbactam 3 GM in Sodium Chloride 0.9% 100 ML IVPB SCH ×4 (05:24→23:40)
[2017-01-15 06:42] LABS: INR 1.1 (0.93-1.08)
[2017-01-15 06:54] LABS: ALB/GLOB RATIO 0.9 (1.1-1.8); ALKALINE PHOSPHATASE 60 U/L (38-133); ALT/SGPT 16 U/L (7-56); AST/SGOT 23 U/L (15-59); BILIRUBIN,TOTAL 0.6 mg/dL (0.2-1.3); BLOOD UREA NITROGEN 19 mg/dL (7-21); CALCIUM 8.5 mg/dL (8.4-10.5); CARBON DIOXIDE 27 mmol/L (21-33); CHLORIDE 104 mmol/L (98-107); GFR AFRICAN-AMERICAN > 60; GLUCOSE,RANDOM 111 mg/dL (70-110); POTASSIUM 4.2 mmol/L (3.6-5.0); SODIUM 139 mmol/L (132-148); TOTAL PROTEIN 7.5 g/dL (5.8-8.3)
[2017-01-15 07:12] LABS: HEMATOCRIT 27.4 % (42.0-52.0); MEAN CELL VOLUME 89.5 fL (80.0-105.0); MEAN CORPUSCULAR HEMOGLOBIN 28.8 pg (25.0-35.0); MEAN CORPUSCULAR HGB CONC 32.1 g/dl (31.0-37.0); MEAN PLATELET VOLUME 10.5 fl (7.0-11.0); RED CELL DISTRIBUTION WIDTH 16.2 % (11.5-14.5); WHITE BLOOD COUNT 7.8 10^3/ul (4.5-11.0)
[2017-01-15] MEDS: Insulin Reg-HIGH-Coverage SC SCH ×4 (07:45→22:20)
--- NOTE | 2017-01-15 09:38 | PN ---
DATE: 01/15/2017 He is status post left foot second toe amputation probably for osteomyelitis. He is resting comforta miles. He is feeling well. No pain. Good spirits. He is eating. PHYSICAL EXAMINATION: VITAL SIGNS: Temp 99, 90 pulse, 130/79 blood pressure, 18 respiratory rate, 94% O2 sat on room air. HEAD: Atraumatic, normocephalic. HEART: Regular rate. LUNGS: Decreased breath sounds, but clear. ABDOMEN: Morbidly obese, nontender. Positive bowel sounds. EXTREMITIES: The left leg is completely wrapped up status post drain and status post amputation. MEDICATIONS: He is currently on Zosyn, Coumadin, heparin, insulin, Norvasc, and Tylenol. LABORATORY DATA: He has a 7.8 white count, 8.8 hemoglobin, 27.4 hematocrit with 197 platelets. I whalen d assumed he was going to be transfused. INR is 1.1. He has got a 139 sodium, potassium 4.2, BUN 19 , creatinine 1.4. GFR is 53. Sugar is 111. Calcium is 8.5. Total bili is 0.6. AST is 23, ALT is 16. Alk phos is 60. Total protein is 7.5. He is currently on Coumadin 10 mg - we have to get that above 2 - it is slowly budging. He is on IV antibiotics, as per infectious disease. We will check his labs tomorrow. Continue with the same med ications, IV antibiotics, Coumadin, skin care. The patient had a second left toe amputation, probably osteomyelitis. Kevin Gleason DO cc: [id number] TT: 01/15/2017 09:38:20 Confirmation # [id number] Dictation # [id number] rachel
[2017-01-15] MEDS: Insulin Lispro (humaLOG) MIX 75/25(10 ml) SC SCH ×2 (10:46→17:05)
--- NOTE | 2017-01-15 12:01 | CP.PCM.PN ---
<Jacqui Aldana - Last Filed: 01/15/17 11:57> Subjective - Date & Time of Evaluation Date of Evaluation: 01/15/17 Time of Evaluation: 10:00 - Subjective Subjective: 51 year old male patient 4 days s/p left foot 2nd digit amputation & metatarsal head resection was seen at bedside this morning. Patient was resting comfortably in chair at the time of visit. AAO x3. No reports of acute overnight distress. Dressing to Left lower extremity remains c/d/i. Patient does not c/o any pain to bilateral lower extremities. Patient denies of any N/V/ F/C or SOB today Objective - Vital Signs/Intake and Output Vital Signs (last 24 hours): Temp Pulse Resp BP Pulse Ox 99.0 F 90 18 130/79 94 L 01/15/17 06:00 01/15/17 06:00 01/15/17 06:00 01/15/17 10:46 01/15/17 06:00 Intake and Output: 01/15/17 01/15/17 06:59 18:59 Intake Total 1660 Output Total 1200 Balance 460 - Medications Medications: Current Medications Acetaminophen (Tylenol 325mg Tab) 650 mg PO Q4H PRN PRN Reason: Pain, Mild (1-3) Amlodipine Besylate (Norvasc) 2.5 mg PO DAILY [facility] Last Admin: 01/15/17 10:46 Dose: 2.5 mg Heparin Sodium (Porcine) (Heparin) 5,000 units SC Q12 [facility] PRN Reason: Protocol Last Admin: 01/15/17 10:46 Dose: 5,000 units Ampicillin Sodium/Sulbactam (Sodium 3 gm/ Sodium Chloride) 100 mls @ 200 mls/ hr IVPB Q6 [facility] PRN Reason: Protocol Stop: 01/20/17 12:01 Last Admin: 01/15/17 11:45 Dose: 200 mls/hr Insulin Human Regular (Humulin R High) 0 units SC ACHS [facility] PRN Reason: Protocol Last Admin: 01/15/17 11:37 Dose: 2 units Insulin Lispro Protam/Lispro Human (Humalog Mix 75/25) 12 units SC BID [facility] Last Admin: 01/15/17 10:46 Dose: 12 unit Warfarin Sodium (Coumadin) 10 mg PO 1800 [facility] PRN Reason: Protocol Last Admin: 01/14/17 20:30 Dose: 10 mg - Labs Labs: 01/15/17 06:00 01/15/17 06:00 PT 11.9 Seconds (9.9-11.8) H 01/15/17 06:00 INR 1.10 (0.93-1.08) H 01/15/17 06:00 APTT 26.7 Seconds (23.7-30.8) 01/09/17 17:30 - Constitutional Appears: Well, Non-toxic, No Acute Distress - Extremities Exam Additional comments: Left lower extremity exam Dressing to Left lower extremity remains clean dry and intact - Neurological Exam Neurological Exam: Alert, Awake, Oriented x3 - Psychiatric Exam Psychiatric exam: Normal Affect, Normal Mood - Skin Skin Exam: Normal Color, Warm Assessment and Plan - Assessment and Plan (Free Text) Assessment: 51 year old male patient is 4 days s/p left foot 2nd digit amputation with metatarsal head resection. Plan: Patient was seen, evaluated and treated at [facility] with attending Dr Gabriel labs and vitals reviewed Dressing to Left lower extremity remains clean dry and intact Continue IV Abx per ID Podiatry will continue to follow in-house <Shaun Gabriel - Last Filed: 01/15/17 12:20> Objective - Vital Signs/Intake and Output Vital Signs (last 24 hours): Temp Pulse Resp BP Pulse Ox 99.0 F 90 18 130/79 94 L 01/15/17 06:00 01/15/17 06:00 01/15/17 06:00 01/15/17 10:46 01/15/17 06:00 Intake and Output: 01/15/17 01/15/17 06:59 18:59 Intake Total 1660 Output Total 1200 Balance 460 - Medications Medications: Current Medications Acetaminophen (Tylenol 325mg Tab) 650 mg PO Q4H PRN PRN Reason: Pain, Mild (1-3) Amlodipine Besylate (Norvasc) 2.5 mg PO DAILY [facility] Last Admin: 01/15/17 10:46 Dose: 2.5 mg Heparin Sodium (Porcine) (Heparin) 5,000 units SC Q12 [facility] PRN Reason: Protocol Last Admin: 01/15/17 10:46 Dose: 5,000 units Ampicillin Sodium/Sulbactam (Sodium 3 gm/ Sodium Chloride) 100 mls @ 200 mls/ hr IVPB Q6 [facility] PRN Reason: Protocol Stop: 01/20/17 12:01 Last Admin: 01/15/17 11:45 Dose: 200 mls/hr Insulin Human Regular (Humulin R High) 0 units SC ACHS [facility] PRN Reason: Protocol Last Admin: 01/15/17 11:37 Dose: 2 units Insulin Lispro Protam/Lispro Human (Humalog Mix 75/25) 12 units SC BID [facility] Last Admin: 01/15/17 10:46 Dose: 12 unit Warfarin Sodium (Coumadin) 10 mg PO 1800 [facility] PRN Reason: Protocol Last Admin: 01/14/17 20:30 Dose: 10 mg - Labs Labs: 01/15/17 06:00 01/15/17 06:00 PT 11.9 Seconds (9.9-11.8) H 01/15/17 06:00 INR 1.10 (0.93-1.08) H 01/15/17 06:00 APTT 26.7 Seconds (23.7-30.8) 01/09/17 17:30 Attending/Attestation - Attestation I have personally seen and examined this patient.: Yes I have fully participated in the care of the patient.: Yes I have reviewed all pertinent clinical information, including history, physical exam and plan: Yes
--- NOTE | 2017-01-15 17:52 | CP.PCM.PN ---
Subjective - Date & Time of Evaluation Date of Evaluation: 01/15/17 Time of Evaluation: 08:50 - Subjective Subjective: Comfortable in bed, not in distress, no fevers, less pain in the foot. Objective - Vital Signs/Intake and Output Vital Signs (last 24 hours): Temp Pulse Resp BP Pulse Ox 99.0 F 90 18 130/79 94 L 01/15/17 06:00 01/15/17 06:00 01/15/17 06:00 01/15/17 10:46 01/15/17 06:00 Intake and Output: 01/15/17 01/15/17 06:59 18:59 Intake Total 1660 840 Output Total 1200 450 Balance 460 390 - Medications Medications: Current Medications Acetaminophen (Tylenol 325mg Tab) 650 mg PO Q4H PRN PRN Reason: Pain, Mild (1-3) Amlodipine Besylate (Norvasc) 2.5 mg PO DAILY [facility] Last Admin: 01/15/17 10:46 Dose: 2.5 mg Heparin Sodium (Porcine) (Heparin) 5,000 units SC Q12 [facility] PRN Reason: Protocol Last Admin: 01/15/17 10:46 Dose: 5,000 units Ampicillin Sodium/Sulbactam (Sodium 3 gm/ Sodium Chloride) 100 mls @ 200 mls/ hr IVPB Q6 [facility] PRN Reason: Protocol Stop: 01/20/17 12:01 Last Admin: 01/15/17 17:05 Dose: 200 mls/hr Insulin Human Regular (Humulin R High) 0 units SC ACHS [facility] PRN Reason: Protocol Last Admin: 01/15/17 17:04 Dose: Not Given Insulin Lispro Protam/Lispro Human (Humalog Mix 75/25) 12 units SC BID [facility] Last Admin: 01/15/17 17:05 Dose: Not Given Warfarin Sodium (Coumadin) 10 mg PO 1800 [facility] PRN Reason: Protocol Last Admin: 01/15/17 17:07 Dose: 10 mg - Labs Labs: 01/15/17 06:00 01/15/17 06:00 PT 11.9 Seconds (9.9-11.8) H 01/15/17 06:00 INR 1.10 (0.93-1.08) H 01/15/17 06:00 APTT 26.7 Seconds (23.7-30.8) 01/09/17 17:30 - Constitutional Appears: Non-toxic, No Acute Distress - Head Exam Head Exam: NORMAL INSPECTION - Respiratory Exam Respiratory Exam: Decreased Breath Sounds - Cardiovascular Exam Cardiovascular Exam: +S1, +S2 - GI/Abdominal Exam GI & Abdominal Exam: Soft. 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
[2017-01-16] MEDS: Ampicillin/Sulbactam 3 GM in Sodium Chloride 0.9% 100 ML IVPB SCH ×3 (05:09→19:40)
[2017-01-16 07:04] LABS: INR 1.25 (0.93-1.08)
[2017-01-16 07:07] LABS: ALB/GLOB RATIO 0.8 (1.1-1.8); ALKALINE PHOSPHATASE 65 U/L (38-133); ALT/SGPT 27 U/L (7-56); AST/SGOT 26 U/L (15-59); BILIRUBIN,TOTAL 0.7 mg/dL (0.2-1.3); BLOOD UREA NITROGEN 17 mg/dL (7-21); CALCIUM 8.4 mg/dL (8.4-10.5); CARBON DIOXIDE 29 mmol/L (21-33); CHLORIDE 104 mmol/L (98-107); GFR AFRICAN-AMERICAN > 60; GLUCOSE,RANDOM 147 mg/dL (70-110); POTASSIUM 4.1 mmol/L (3.6-5.0); SODIUM 141 mmol/L (132-148); TOTAL PROTEIN 7.6 g/dL (5.8-8.3)
[2017-01-16 07:19] LABS: HEMATOCRIT 27.9 % (42.0-52.0); MEAN CELL VOLUME 90.3 fL (80.0-105.0); MEAN CORPUSCULAR HEMOGLOBIN 29.1 pg (25.0-35.0); MEAN CORPUSCULAR HGB CONC 32.3 g/dl (31.0-37.0); MEAN PLATELET VOLUME 10.1 fl (7.0-11.0); RED CELL DISTRIBUTION WIDTH 16.1 % (11.5-14.5); WHITE BLOOD COUNT 6.8 10^3/ul (4.5-11.0)
[2017-01-16] MEDS: Insulin Reg-HIGH-Coverage SC SCH ×3 (08:45→17:46)
--- NOTE | 2017-01-16 08:58 | PN ---
DATE: 01/16/2017 I see him resting in bed. He slept well. He is comfortable. The left foot is bandaged. No pain. He is eating well. Good spirits. PHYSICAL EXAMINATION: VITAL SIGNS: He has a 98.2 temp, 52 pulse, 133/69 blood pressure, 19 respiratory rate, 100% O2 sat o n room air. HEENT: His head is atraumatic, normocephalic. His throat is moist. NECK: Supple. HEART: Regular rate. LUNGS: Decreased breath sounds, but clear to auscultation. ABDOMEN: Morbidly, morbidly obese, nontender, positive bowel sounds, no guarding. EXTREMITIES: The left leg is all wrapped up. The drain is out. He is currently on Zosyn IV, Coumadin 10 mg, heparin 5000, insulin, Norvasc, and Tylenol. LABORATORIES: He has a 1.25 INR. We have to get that above 2. He has a 6.8 white count, 9 hemoglob in, 27.9 hematocrit and a 192 platelets. Sodium 141, potassium 4.1, BUN 17, creatinine 1.1, GFR is g reater than 60, sugar is 147, calcium is 8.4, total bilirubin is 0.7, AST is 26, ALT is 27, alk phos 65, total protein 7.6. He is being seen by podiatry, infectious disease. Infectious disease still wants him on the IV Unasy n. I am waiting for the INR to get above 2 and we will continue with treatment and care for status p ost osteomyelitis of the left second toe and amputation. Kevin Gleason DO cc: [id number] TT: 01/16/2017 08:57:46 Confirmation # [id number] Dictation # [id number]
--- NOTE | 2017-01-16 09:12 | CP.PCM.PN ---
Subjective - Date & Time of Evaluation Date of Evaluation: 01/16/17 Time of Evaluation: 08:00 - Subjective Subjective: 51 year old male patient 5 days s/p left foot 2nd digit amputation & metatarsal head resection was seen at bedside this morning with attending Dr. Shetty. Patient was resting comfortably in bed at the time of visit. AAO x3. Dressing to Left lower extremity remains c/d/i. Patient does not c/o any pain to bilateral lower extremities. Patient denies of any N/V/F/C or SOB today Objective - Vital Signs/Intake and Output Vital Signs (last 24 hours): Temp Pulse Resp BP Pulse Ox 98.2 F 52 L 19 133/69 100 01/15/17 16:00 01/15/17 16:00 01/15/17 16:00 01/15/17 16:00 01/15/17 16:00 Intake and Output: 01/16/17 01/16/17 06:59 18:59 Intake Total 1182 Balance 1182 - Medications Medications: Current Medications Acetaminophen (Tylenol 325mg Tab) 650 mg PO Q4H PRN PRN Reason: Pain, Mild (1-3) Amlodipine Besylate (Norvasc) 2.5 mg PO DAILY [facility] Last Admin: 01/15/17 10:46 Dose: 2.5 mg Heparin Sodium (Porcine) (Heparin) 5,000 units SC Q12 [facility] PRN Reason: Protocol Last Admin: 01/15/17 22:21 Dose: 5,000 units Ampicillin Sodium/Sulbactam (Sodium 3 gm/ Sodium Chloride) 100 mls @ 200 mls/ hr IVPB Q6 [facility] PRN Reason: Protocol Stop: 01/20/17 12:01 Last Admin: 01/16/17 05:09 Dose: 200 mls/hr Insulin Human Regular (Humulin R High) 0 units SC ACHS [facility] PRN Reason: Protocol Last Admin: 01/16/17 08:45 Dose: 2 units Insulin Lispro Protam/Lispro Human (Humalog Mix 75/25) 12 units SC BID [facility] Last Admin: 01/15/17 17:05 Dose: Not Given Warfarin Sodium (Coumadin) 10 mg PO 1800 [facility] PRN Reason: Protocol Last Admin: 01/15/17 17:07 Dose: 10 mg - Labs Labs: 01/16/17 06:30 01/16/17 06:30 PT 13.5 Seconds (9.9-11.8) H 01/16/17 06:30 INR 1.25 (0.93-1.08) H 01/16/17 06:30 APTT 26.7 Seconds (23.7-30.8) 01/09/17 17:30 - Constitutional Appears: Well, Non-toxic, No Acute Distress - Extremities Exam Additional comments: Left lower extremity exam DERM: Incision site appears well coapted with all the sutures intact. Drain suction was intact. No active bleeding is noted. Mild erythema noted around the surgical site noted. Open ulceration noted to anterior aspect of Left leg proximal to ankle, measuring 4cmx 3cmx 0.2cm with granular base. Mild sero-sanguinous drainage is noted. No purulent discharge is noted. VASC: +1 pitting edema noted to left lower extremity extending from foot to lower leg. No calf tenderness noted. NEURO: Gross sensation diminished ORTHO: No pain on palpation to joints to left lower extremity. MMT 5/5 with decreased passive ROM to joints to distal to ankle - Neurological Exam Neurological Exam: Alert, Awake, Oriented x3 - Psychiatric Exam Psychiatric exam: Normal Affect, Normal Mood - Skin Skin Exam: Normal Color, Warm Assessment and Plan - Assessment and Plan (Free Text) Assessment: 51 year old male patient is 5 days s/p left foot 2nd digit amputation with metatarsal head resection. Plan: Patient was seen, evaluated and treated at bedside with attending Dr. Shetty labs and vitals reviewed Sutures left intact. Left foot dressed with DSD, leg ulcer dressed with Maxorb and DSD. Compression dressing was applied to the Left lower extremity with [facility] will change dressing on Saturday Continue IV Abx per ID Podiatry will continue to follow in-house
[2017-01-16 10:16] VITALS: RESP 20; TEMP 98.9
[2017-01-16] MEDS: Insulin Lispro (humaLOG) MIX 75/25(10 ml) SC SCH ×2 (10:29→17:46)
[2017-01-16 16:31] VITALS: BP 133/69; PULSE 88; O2SAT 97
--- NOTE | 2017-01-16 17:17 | CP.PCM.PN ---
Subjective - Date & Time of Evaluation Date of Evaluation: 01/16/17 Time of Evaluation: 09:15 - Subjective Subjective: Comfortable in bed, not in distress. Less pain in the left foot. No fevers overnight. Objective - Vital Signs/Intake and Output Vital Signs (last 24 hours): Temp Pulse Resp BP Pulse Ox 98.9 F 88 20 133/69 97 01/16/17 16:31 01/16/17 16:31 01/16/17 16:31 01/16/17 16:31 01/16/17 16:31 Intake and Output: 01/16/17 01/16/17 06:59 18:59 Intake Total 1182 660 Balance 1182 660 - Medications Medications: Current Medications Acetaminophen (Tylenol 325mg Tab) 650 mg PO Q4H PRN PRN Reason: Pain, Mild (1-3) Amlodipine Besylate (Norvasc) 2.5 mg PO DAILY [facility] Last Admin: 01/16/17 09:17 Dose: 2.5 mg Heparin Sodium (Porcine) (Heparin) 5,000 units SC Q12 [facility] PRN Reason: Protocol Last Admin: 01/16/17 09:20 Dose: 5,000 units Ampicillin Sodium/Sulbactam (Sodium 3 gm/ Sodium Chloride) 100 mls @ 200 mls/ hr IVPB Q6 [facility] PRN Reason: Protocol Stop: 01/20/17 12:01 Last Admin: 01/16/17 11:38 Dose: 200 mls/hr Insulin Human Regular (Humulin R High) 0 units SC ACHS [facility] PRN Reason: Protocol Last Admin: 01/16/17 11:37 Dose: 4 units Insulin Lispro Protam/Lispro Human (Humalog Mix 75/25) 12 units SC BID [facility] Last Admin: 01/16/17 10:29 Dose: 12 unit Warfarin Sodium (Coumadin) 10 mg PO 1800 [facility] PRN Reason: Protocol Last Admin: 01/15/17 17:07 Dose: 10 mg - Labs Labs: 01/16/17 06:30 01/16/17 06:30 PT 13.5 Seconds (9.9-11.8) H 01/16/17 06:30 INR 1.25 (0.93-1.08) H 01/16/17 06:30 APTT 26.7 Seconds (23.7-30.8) 01/09/17 17:30 - Constitutional Appears: Non-toxic, No Acute Distress - Head Exam Head Exam: NORMAL INSPECTION - ENT Exam ENT Exam: Mucous Membranes Moist - Neck Exam Neck Exam: absent: Lymphadenopathy, Meningismus - Respiratory Exam Respiratory Exam: Decreased Breath Sounds - Cardiovascular Exam Cardiovascular Exam: +S1, +S2 - GI/Abdominal Exam GI & Abdominal Exam: Soft. 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
== END 2017-01-16 20:40 | disposition home or self-care (01) ==
LOC: ED 16:26 → ERH 20:49 → 3RNO 01-10 00:08
PROVIDERS: ADMIT Family Medicine; ATTEND Family Medicine
PROC: 0Y6S0Z0 Detachment at Left 2nd Toe, Complete, Open Approach (ICD-10-PCS; principal; 2017-01-11 11:00)
PROC: 30233N1 Transfusion of Nonautologous Red Blood Cells into Peripheral Vein, Percutaneous Approach (ICD-10-PCS; 2017-01-15)
DX: E11.69 Type 2 diabetes mellitus with other specified complication (principal); M86.172 Other acute osteomyelitis, left ankle and foot; I82.412 Acute embolism and thrombosis of left femoral vein; E11.621 Type 2 diabetes mellitus with foot ulcer; L97.529 Non-pressure chronic ulcer of other part of left foot with unspecified severity; I27.2 Other secondary pulmonary hypertension; Z68.43 Body mass index [BMI] 50.0-59.9, adult; E66.01 Morbid (severe) obesity due to excess calories; D64.9 Anemia, unspecified; I10 Essential (primary) hypertension; Z86.711 Personal history of pulmonary embolism; Z82.49 Family history of ischemic heart disease and other diseases of the circulatory system

== ENCOUNTER 2017-02-15 17:33 | Emergency (ER) | payer SELFPAY ==
[2017-02-15 17:34] VITALS: BMI 50.7
[2017-02-15 17:47] VITALS: RESP 16; TEMP 98.5
--- NOTE | 2017-02-15 18:33 | ED PDOC ---
Arrival/HPI - General Chief Complaint: Med Refill Time Seen by Provider: 02/15/17 18:01 Historian: Patient - History of Present Illness Narrative History of Present Illness (Text): 02/15/17 18:29 51yo male with PMHx of diabetes , diabetic foot and DVT currently on Coumadin 10mg present to ED for Coumadin prescription. States he took his last dose of Coumadin today. He couldn't see his PMD today because he is uninsured. He denies chest pain, SOB, calf pain, diaphoresis, any other complaint. Past Medical History - Provider Review Nursing Documentation Reviewed: Yes - Cardiac Hx Cardiac Disorders: Yes Hx Hypertension: Yes - Pulmonary Hx Respiratory Disorders: Yes Hx Pulmonary Embolism: Yes - Neurological Hx Neurological Disorder: No - HEENT Hx HEENT Disorder: No - Renal Hx Renal Disorder: No - Endocrine/Metabolic Hx Diabetes Mellitus Type 2: Yes - Hematological/Oncological Hx Blood Transfusions: Yes Hx Blood Transfusion Reaction: No - Integumentary Hx Cellulitis: Yes - Musculoskeletal/Rheumatological Hx Musculoskeletal Disorders: No - Gastrointestinal Hx Gastrointestinal Disorders: No - Genitourinary/Gynecological Hx Genitourinary Disorders: No - Psychiatric Hx Psychophysiologic Disorder: No Hx Substance Use: No - Surgical History Other/Comment: L FOOT R/T OSTEOMYELITIS - Anesthesia Hx Anesthesia Reactions: No Hx Malignant Hyperthermia: No Family/Social History - Physician Review Nursing Documentation Reviewed: Yes Family/Social History: Unknown Family HX Smoking Status: Never Smoked Hx Alcohol Use: No Hx Substance Use: No Allergies/Home Meds Allergies/Adverse Reactions: Allergies No Known Allergies Allergy (Verified 02/15/17 17:40) Review of Systems - Physician Review All systems were reviewed & negative as marked: Yes - Review of Systems Constitutional: Normal Eyes: Normal ENT: Normal Respiratory: Normal Cardiovascular: Normal Gastrointestinal: Normal Genitourinary Male: Normal Musculoskeletal: Other (Requesting a prescription for Coumadin) Skin: Normal Neurological: Normal Endocrine: Normal Hemo/Lymphatic: Normal Psychiatric: Normal Physical Exam Vital Signs Reviewed: Yes Vital Signs Temp Pulse Resp BP Pulse Ox 02/15/17 20:06 90 16 169/90 H 99 02/15/17 17:45 98.5 F 98 H 16 175/93 H 98 Temperature: Afebrile Blood Pressure: Normal Pulse: Regular Respiratory Rate: Normal Appearance: Positive for: Well-Appearing, Non-Toxic, Comfortable, Other ( [place] obese) Pain Distress: None Mental Status: Positive for: Alert and Oriented X 3 - Systems Exam Head: Present: Atraumatic, Normocephalic Pupils: Present: PERRL Extroacular Muscles: Present: EOMI Conjunctiva: Present: Normal Mouth: Present: Moist Mucous Membranes Neck: Present: Normal Range of Motion Respiratory/Chest: Present: Clear to Auscultation, Good Air Exchange. No: Respiratory Distress, Accessory Muscle Use Cardiovascular: Present: Regular Rate and Rhythm, Normal S1, S2. No: Murmurs Abdomen: Present: Normal Bowel Sounds. No: Tenderness, Distention, Peritoneal Signs Back: Present: Normal Inspection Upper Extremity: Present: Normal Inspection. No: Cyanosis, Edema Lower Extremity: Present: Normal Inspection, Other (Dressing noted intact to left lower leg). No: Edema Neurological: Present: GCS=15, CN II-XII Intact, Speech Normal Skin: Present: Warm, Dry, Normal Color. No: Rashes Psychiatric: Present: Alert, Oriented x 3, Normal Insight, Normal Concentration Medical Decision Making ED Course and Treatment: 02/16/17 01:43 Pt presented for stated history. His INR was sub therapeutic 1.41. He was given a dose of Coumadin in ED. He sees Dr. Gleason. He was advised to f/u with Dr. Gleason or the clinic for adjustment of his medication. He was given rx of Coumadin 10mg #15tabs. Advised TRT ED for any new or worsening symptoms. - Lab Interpretations Lab Results: Lab Results 02/15/17 19:15: PT 15.2 H, INR 1.41 H, APTT 31.9 H - Medication Orders Current Medication Orders: Discontinued Medications Warfarin Sodium (Coumadin) 10 mg PO 1800 [facility] PRN Reason: Protocol Stop: 02/15/17 19:47 Last Admin: 02/15/17 20:00 Dose: 10 mg Disposition/Present on Arrival - Present on Arrival Any Indicators Present on Arrival: Yes History of DVT/PE: Yes History of Uncontrolled Diabetes: Yes Urinary Catheter: No History of Decub. Ulcer: No History Surgical Site Infection Following: None - Disposition Have Diagnosis and Disposition been Completed?: Yes Diagnosis: DVT (deep venous thrombosis), Medication refill Disposition: HOME/ ROUTINE Disposition Time: 19:40 Patient Plan: Discharge Condition: STABLE Discharge Instructions (ExitCare): Deep Venous Thrombosis (ED) Additional Instructions: Follow up with the clinic Return to ED for any new or worsening symptoms Prescriptions: Warfarin [Coumadin] 10 mg PO 1800 #15 tab Referrals: PCP,NO [Primary Care Provider] - Follow up with primary
[2017-02-15 19:34] LABS: INR 1.41 (0.93-1.08); PARTIAL THROMBOPLASTIN TIME 31.9 Seconds (23.7-30.8)
[2017-02-15 20:07] VITALS: BP 169/90; PULSE 90; O2SAT 99
== END 2017-02-15 20:08 | disposition home or self-care (01) ==
LOC: ED 17:33
DX: Z76.0 Encounter for issue of repeat prescription (principal); I82.409 Acute embolism and thrombosis of unspecified deep veins of unspecified lower extremity; I10 Essential (primary) hypertension; E11.9 Type 2 diabetes mellitus without complications; Z79.01 Long term (current) use of anticoagulants

== ENCOUNTER 2017-12-16 13:42 | Inpatient (IN) | payer OTHER ==
[2017-12-16 13:43] VITALS: BMI 50.7
[2017-12-16 16:08] LABS: BASO # 0.01 K/mm3 (0.0-2.0); BASO % 0.1 % (0.0-3.0); EOS # 0.2 (0.0-0.7); GRAN # 5.35 (1.4-6.5); GRAN % 68.5 % (50.0-68.0); HEMOGLOBIN 9.8 g/dL (14.0-18.0); LYMPH # 1.3 (1.2-3.4); LYMPH % 16.2 % (22.0-35.0); MEAN CELL VOLUME 92.2 fl (80.0-105.0); MEAN CORPUSCULAR HEMOGLOBIN 29.3 pg (25.0-35.0); MEAN CORPUSCULAR HGB CONC 31.7 g/dl (31.0-37.0); MEAN PLATELET VOLUME 10.6 fl (7.0-11.0); MONO % 13.2 % (1.0-6.0); RBC 3.35 10^6/uL (3.5-6.1); RED CELL DISTRIBUTION WIDTH 16.2 % (11.5-14.5); WHITE BLOOD COUNT 7.8 10^3/ul (4.5-11.0)
[2017-12-16 16:13] LABS: ALB/GLOB RATIO 0.7 (1.1-1.8); ALBUMIN 3.3 g/dL (3.0-4.8); ALT/SGPT 39 U/L (7-56); AST/SGOT 36 U/L (17-59); BLOOD UREA NITROGEN 17 mg/dL (7-21); GFR AFRICAN-AMERICAN > 60; GFR NON-AFRICAN AMERICAN 53
[2017-12-16 16:24] LABS: B-TYPE NATRIURETIC PEPTIDE 6020 pg/mL (0-450); TROPONIN I 0.05 ng/mL
[2017-12-16 16:45] LABS: PROTHROMBIN TIME 52.6 SECONDS (9.4-12.5)
[2017-12-16 16:46] LABS: INR 4.48 (0.93-1.08); PARTIAL THROMBOPLASTIN TIME 47.4 Seconds (25.1-36.5)
[2017-12-16 17:08] LABS: CK-MB 1.7 ng/mL (0.0-3.6)
[2017-12-16] MEDS ORDERED: Piperacillin/Tazobact 3.375 gm 100 ML IVPB STA (17:44)
[2017-12-16] MEDS ORDERED: Vancomycin 1gm in NS 250ml 1 GM/250 ML BAG IVPB STA (17:44)
--- NOTE | 2017-12-16 18:24 | ED PDOC ---
Arrival/HPI - General Chief Complaint: Lower Extremity Problem/Injury Time Seen by Provider: 12/16/17 14:31 Historian: Patient - History of Present Illness Narrative History of Present Illness (Text): 12/16/17 18:23 52-year-old male presents today sense in from Dr. Shetty's office for left foot ulceration and cellulitis. Patient states for the past week and a half he' s noticed an ulceration to the plantar aspect of the left foot. Patient states he is also noted that over the past 2 weeks he's had increased swelling in the legs bilaterally left greater than right. Patient states he is also found that he has been becoming more short of breath with ambulation. Patient states at rest he feels okay but if he is to get up and start to walk he quickly becomes short of breath. Patient denies chest pain. He denies fevers or chills. Patient denies a history of diabetes. Patient states he has a history of chronic leg swelling but never as significant as it has been over the past week and a half. Patient denies dizziness. No other complaints. Time/Duration: > week Symptom Onset: Gradual Symptom Course: Worsening Quality: Aching Severity Level: Mild Past Medical History - Provider Review Nursing Documentation Reviewed: Yes - Travel History Have you recently traveled outside [place] w/in the past 3 mons?: No - Tetanus Immunization Tetanus Immunization: Unknown - Cardiac Hx Cardiac Disorders: Yes Hx Hypertension: Yes - Pulmonary Hx Respiratory Disorders: Yes Hx Pulmonary Embolism: Yes - Neurological Hx Neurological Disorder: No - HEENT Hx HEENT Disorder: No - Renal Hx Renal Disorder: No - Endocrine/Metabolic Hx Endocrine Disorders: Yes Hx Diabetes Mellitus Type 2: Yes - Hematological/Oncological Hx Blood Disorders: Yes Hx Blood Transfusions: Yes Hx Blood Transfusion Reaction: No - Integumentary Hx Dermatological Disorder: Yes Hx Cellulitis: Yes - Musculoskeletal/Rheumatological Hx Musculoskeletal Disorders: No - Gastrointestinal Hx Gastrointestinal Disorders: No - Genitourinary/Gynecological Hx Genitourinary Disorders: No - Psychiatric Hx Psychophysiologic Disorder: No Hx Substance Use: No - Surgical History Other/Comment: L FOOT R/T OSTEOMYELITIS - Anesthesia Hx Anesthesia Reactions: No Hx Malignant Hyperthermia: No Family/Social History - Physician Review Nursing Documentation Reviewed: Yes Family/Social History: Unknown Family HX Smoking Status: Never Smoked Hx Alcohol Use: No Hx Substance Use: No Allergies/Home Meds Allergies/Adverse Reactions: Allergies No Known Allergies Allergy (Verified 12/16/17 13:47) Home Medications: Home Meds Medication Instructions Recorded Confirmed Furosemide [Lasix] 40 mg PO DAILY 12/16/17 12/16/17 Potassium Chloride 20 meq PO DAILY 12/16/17 12/16/17 Review of Systems - Review of Systems Constitutional: absent: Fatigue, Fevers Respiratory: SOB, Other (BARBOSA). absent: Cough Cardiovascular: absent: Chest Pain, Palpitations Gastrointestinal: absent: Abdominal Pain, Nausea, Vomiting Genitourinary Male: absent: Dysuria Musculoskeletal: Arthralgias, Joint Swelling Skin: Skin Lesions, Cellulitis Neurological: absent: Headache, Dizziness Psychiatric: absent: Anxiety, Depression Physical Exam Vital Signs Reviewed: Yes Vital Signs Temp Pulse Resp BP Pulse Ox 12/16/17 18:41 139/80 12/16/17 18:02 88 18 139/80 97 12/16/17 17:32 79 18 138/69 97 12/16/17 16:56 86 18 141/73 97 12/16/17 13:50 98.9 F 93 H 16 146/80 95 Temperature: Afebrile Blood Pressure: Normal Pulse: Regular Respiratory Rate: Normal Appearance: Positive for: Well-Appearing, Non-Toxic, Comfortable Pain Distress: None Mental Status: Positive for: Alert and Oriented X 3 - Systems Exam Head: Present: Atraumatic Mouth: Present: Moist Mucous Membranes Neck: Present: Normal Range of Motion Respiratory/Chest: Present: Good Air Exchange, Rales (rales at the bases bilaterally). No: Clear to Auscultation, Respiratory Distress, Accessory Muscle Use, Wheezes, Rhonchi, Tachypneic Cardiovascular: Present: Regular Rate and Rhythm Abdomen: No: Tenderness, Rebound, Guarding Back: Present: Normal Inspection Upper Extremity: Present: Normal ROM Lower Extremity: Present: Edema (b/l edema, left greater than right extending from foot - thigh. ), Tenderness (left foot; there is a large ulceration noted to the plantar aspect of foot over the heel with purulent discharge; + warmth and erythema extending along foot; no crepitus. ), Swelling, Erythema Neurological: Present: GCS=15, Speech Normal Skin: Present: Warm, Dry Psychiatric: Present: Alert, Oriented x 3 Medical Decision Making ED Course and Treatment: 12/16/17 18:28 52yr old male with infected ulcer to left heel. with BARBSOA worsening over 1+ weeks. cbc; hbg; 9.8 cmp; wnl bnp; 6020 trop0.05 ekg; normal sinus rhythm at 89 bpm normal axis and no ST elevations QTC 503 cxr; cardiomegaly; increased vascular markings. left foot xray; amputations of 1st 2nd metacarpals. ulcer to heel; ? Fb duplex b/l lower leg; no dvt, limited study; verbal report from [employer]. blood cultures pending vancomycin and zosyn given IV 40mg lasix given IV. pt reassessment; pt non toxic well appearing; no distress. all results discussed in depth with patient. case discussed with dr. bentley who saw patient at beside; accepts admission to tele for chf, cellulitis, foot ulcer. impression; chf, cellulitis, foot ulceration, supratherapeutic INR admit to tele. - Lab Interpretations Lab Results: 12/16/17 15:45 12/16/17 15:45 Lab Results 12/16/17 15:45: WBC 7.8, RBC 3.35 L, Hgb 9.8 L, Hct 30.9 L, MCV 92.2, MCH 29.3, MCHC 31.7, RDW 16.2 H, Plt Count 192, MPV 10.6, Gran % 68.5 H, Lymph % (Auto) 16.2 L, Reeves % (Auto) 13.2 H, Eos % (Auto) 2.0, Baso % (Auto) 0.1, Gran # 5.35, Lymph # (Auto) 1.3, Reeves # (Auto) 1.0 H, Eos # (Auto) 0.2, Baso # (Auto) 0.01 12/16/17 15:45: Sodium 141, Potassium 4.1, Chloride 107, Carbon Dioxide 27, Anion Gap 11, BUN 17, Creatinine 1.4, Est GFR ( Amer) > 60, Est GFR (Non- Af Amer) 53, Random Glucose 135 H, Calcium 9.0, Total Bilirubin 1.2, AST 36, ALT 39, Alkaline Phosphatase 130 H, Lactate Dehydrogenase 787 H, Total Creatine Kinase 443 H, CK-MB (CK-2) 1.7, CK-MB (CK-2) % Cancelled, Troponin I 0.05, NT- Pro-B Natriuret Pep 6020 H, Total Protein 7.9, Albumin 3.3, Globulin 4.6, Albumin/Globulin Ratio 0.7 L 12/16/17 15:45: PT 52.6 H, INR 4.48 H*, APTT 47.4 H - RAD Interpretation Radiology Orders: 12/16/17 14:56 DUPLEX LOWER EXTRM VEIN BILAT [US] Stat - Medication Orders Current Medication Orders: Furosemide (Lasix) 40 mg IVP DAILY ROSENDA Last Admin: 12/16/17 18:41 Dose: Piperacillin Sod/Tazobactam Sod (Zosyn 2.25 Gm In 0.9% 100 Ml) 2.25 gm in 100 mls @ 100 mls/hr IVPB Q6 ROSENDA PRN Reason: Protocol Stop: 12/17/17 06:59 Insulin Human Regular (Humulin R Med) 0 units SC ACHS ROSENDA PRN Reason: Protocol Potassium Chloride (K-Dur 20 Meq Er Tab) 20 meq PO DAILY ROSENDA Discontinued Medications Furosemide (Lasix) 40 mg IVP STAT STA Stop: 12/16/17 17:52 Last Admin: 12/16/17 18:41 Dose: 40 mg MAR Blood Pressure Document 12/16/17 18:41 EQ (Rec: 12/16/17 18:41 EQ [id number]) Blood Pressure Blood Pressure (100/60-150/90 mm Hg) 139/80 IVP Administration Document 12/16/17 18:41 EQ (Rec: 12/16/17 18:41 EQ [id number]) Charges for Administration # of IVP Administrations 1 Vancomycin HCl (Vancomycin 1gm) 1 gm in 250 mls @ 167 mls/hr IVPB STAT STA PRN Reason: Protocol Stop: 12/16/17 19:13 Piperacillin Sod/Tazobactam Sod (Zosyn 3.375 In Ns 100ml) 100 mls @ 200 mls/hr IVPB STAT STA PRN Reason: Protocol Stop: 12/16/17 18:13 Last Admin: 12/16/17 18:41 Dose: 200 mls/hr eMAR Start Stop Document 12/16/17 18:41 EQ (Rec: 12/16/17 18:41 EQ [id number]) Intravenous Solution Start Date 03/05/18 Start Time 18:41 Disposition/Present on Arrival - Present on Arrival Any Indicators Present on Arrival: Yes History of DVT/PE: Yes History of Uncontrolled Diabetes: Yes Urinary Catheter: No History of Decub. Ulcer: No History Surgical Site Infection Following: None - Disposition Have Diagnosis and Disposition been Completed?: Yes Diagnosis: Cellulitis, CHF (congestive heart failure), Supratherapeutic INR Disposition: HOSPITALIZED Disposition Time: 18:23 Patient Plan: Admission Patient Problems: Current Active Problems Problem Status Onset CHF (congestive heart failure) Acute Cellulitis Acute Supratherapeutic INR Acute Condition: FAIR
[2017-12-16 21:02] LABS: URINE BILIRUBIN NEGATIVE (NEGATIVE); URINE BLOOD LARGE (NEGATIVE); URINE GLUCOSE (UA) NEGATIVE (NEGATIVE); URINE LEUKOCYTE ESTERASE NEGATIVE Leu/uL (NEGATIVE); URINE PROTEIN 100 mg/dL (<30 mg/dL)
[2017-12-16 21:03] LABS: URINE APPEARANCE CLEAR (CLEAR); URINE COLOR YELLOW (YELLOW)
--- NOTE | 2017-12-16 21:24 | US ---
HISTORY: Leg pain and swelling. Evaluate for DVT PHYSICIAN(S): Mauro Reeves MD. TECHNIQUE: Duplex sonography and color-flow Doppler with graded compression were used to evaluate the deep venous systems of both lower extremities. The exam is extremely limited by body habitus and edema FINDINGS: The visualized deep venous systems of both lower extremities are sonographically normal and compressible. Normal wave forms and augmentation are seen. There is no sonographic evidence for deep venous thrombosis in the visualized segments of both lower extremities. IMPRESSION: No sonographic evidence for deep venous thrombosis in the visualized segments of both lower extremities. Extremely limited exam
[2017-12-16 21:38] LABS: URINE BACTERIA MANY (NEG); URINE RBC 20 - 25 /hpf (0-2)
--- NOTE | 2017-12-16 22:24 | CARD ---
APPROVED REPORT EKG Measurement Heart [id number] <Conclusion> Poor data quality, interpretation may be adversely affected Normal sinus rhythm Possible Left atrial enlargement Prolonged QT Abnormal ECG
[2017-12-16] MEDS: Insulin Reg-MEDIUM-Coverage SC SCH (23:10)
[2017-12-17] MEDS ORDERED: Piperacillin/Tazobact 2.25gm 2.25 GM/100 ML BAG IVPB SCH
[2017-12-17 06:31] LABS: HEMOGLOBIN 9.5 g/dL (14.0-18.0); MEAN CELL VOLUME 92.9 fl (80.0-105.0); MEAN CORPUSCULAR HEMOGLOBIN 30.4 pg (25.0-35.0); MEAN CORPUSCULAR HGB CONC 32.8 g/dl (31.0-37.0); MEAN PLATELET VOLUME 10.8 fl (7.0-11.0); RBC 3.12 10^6/uL (3.5-6.1); RED CELL DISTRIBUTION WIDTH 16.4 % (11.5-14.5); WHITE BLOOD COUNT 5.6 10^3/ul (4.5-11.0)
[2017-12-17 06:42] LABS: PROTHROMBIN TIME 49.8 SECONDS (9.4-12.5)
[2017-12-17 06:43] LABS: ALB/GLOB RATIO 0.7 (1.1-1.8); ALT/SGPT 35 U/L (7-56); AST/SGOT 34 U/L (17-59); BLOOD UREA NITROGEN 18 mg/dL (7-21); CALCIUM 8.5 mg/dL (8.4-10.5); GFR AFRICAN-AMERICAN > 60; GFR NON-AFRICAN AMERICAN 58; INR 4.21 (0.93-1.08)
[2017-12-17] MEDS: Insulin Reg-MEDIUM-Coverage SC SCH ×4 (08:07→22:08)
--- NOTE | 2017-12-17 08:19 | HP ---
HISTORY OF PRESENT ILLNESS: I saw Connor in the emergency room. I was called down to see him. He was sent in from Dr. Shetty's office for a left foot ulceration and cellulitis. He has been dealing with this for about 10 days now. He noticed an ulceration to the plantar aspect of the left foot, also increase in the swelling in both his feet, also more short of breath with ambulation. If he starts to walk, it happens quickly. No chest pain. He denies diabetes. He is a very big man. PAST MEDICAL HISTORY: Cardiac disease, hypertension. He has a pulmonary embolism, on Coumadin. He has questionable type 2 diabetes, though he is not taking any medications for. He had transfusions in the past, cellulitis in the past. He had a left foot right toe osteomyelitis and amputation. He has hypertension, diabetes in the family, never smoked. No alcohol. No drugs. ALLERGIES: NO KNOWN DRUG ALLERGIES. MEDICATIONS: He is on warfarin, Lasix and potassium. REVIEW OF SYSTEMS: He is not fatigued at rest. No fevers. He is short of breath, dyspnea on exertion. No cough. No chest pain or palpitations. No abdominal pain. No nausea, vomiting, constipation or diarrhea. No problems urinating. Some joint aches in the left leg. There is a large lesion in the left leg and redness. No headache or dizziness. Not anxious. No depression. No tremors or neurological weakness. PHYSICAL EXAMINATION: VITAL SIGNS: He has 98.9 temp, 93 pulse, 16 respiratory rate, 146/80 blood pressure, 95% O2 sat. GENERAL: He is comfortable at this time. Alert, talking with me. At rest, he is fine. Alert and oriented x3. HEENT: Head is atraumatic, normocephalic. Throat is moist. NECK: Supple. HEART: Regular rate. LUNGS: Decreased breath sounds bilaterally, difficult to hear anything. He is a very large man, maybe greater than 400 pounds. ABDOMEN: Morbidly obese. No apparent guarding or rebound. Soft. Decreased bowel sounds were present. EXTREMITY: He has got bilateral edema, +4/4 pitting edema with a very large ulceration to the plantar aspect of the left foot, also to the heel with purulent discharge, it is warm and erythematous around the foot. NEUROLOGIC: GCS is 15. Speech is normal. Cranial nerves II through XII grossly intact. SKIN: Okay except for left foot. Alert and oriented x3. LYMPH NODES: Thyroid midline. No palpable lymphadenopathy appreciated. It is very difficult. He is very large. LABORATORY DATA: He had multiple tests done. He has a 7.8 white count, 9.8 hemoglobin, 30.9 hematocrit with a 192 platelets. He has a 4.48 INR. He has been taking his Coumadin. I will put that on hold. He has a 141 sodium, potassium 4.1, BUN 17, creatinine 1.4, GFR is 53, sugar is 135, calcium is 9, total bili is 1.2, AST is 36, ALT is 39, alk phos is 130, lactate dehydrogenase is 797, total creatine kinase is 443. Troponin I is indeterminate at 0.05. BNP is brian high at 6020. Total protein 7.9, albumin is 3.3. He has a extremity ultrasound and the EKG pending. I will order a chest x-ray. IMPRESSION: Dr. Swenson consult. Dr. Shetty consult. Dr. Molina consult. IV Lasix, potassium. He will get some Zosyn. He had a dose of vancomycin. He is here for cellulitis and ulcer of the left foot. Sent in by Dr. Shetty with probable congestive heart failure, possibly diet-controlled diabetes. We will try and diurese him. IV antibiotics. Skin and wound care. Kevin Gleason DO
--- NOTE | 2017-12-17 08:33 | RAD ---
PROCEDURE: Left Foot Radiographs. HISTORY: ulcer, heel COMPARISON: 01/11/2017 FINDINGS: BONES: Normal. No fractureGo status post osteotomy/amputation 1st and 2nd digit mid metatarsal. There are bony fragments remaining distal to the 1st and 2nd metatarsal remnants. Go. There is no acute fracture. . JOINTS: Normal. SOFT TISSUES: There is a cutaneous ulcer along the plantar aspect of the posterior calcaneus. OTHER FINDINGS: None. IMPRESSION: Posterior plantar ulcer. Amputation 1st and 2nd digit.
--- NOTE | 2017-12-17 08:34 | RAD ---
HISTORY: jerome COMPARISON: 01/09/2017 TECHNIQUE: Chest PA and lateral FINDINGS: LUNGS: No active pulmonary disease. PLEURA: No significant pleural effusion identified. No pneumothorax apparent. CARDIOVASCULAR: Normal. OSSEOUS STRUCTURES: No significant abnormalities. VISUALIZED UPPER ABDOMEN: Normal. OTHER FINDINGS: None. IMPRESSION: No active disease.
[2017-12-17] MEDS: Potassium Chloride 20 mEq ER Tab PO SCH (10:19)
--- NOTE | 2017-12-17 14:47 | PN ---
DATE: SUBJECTIVE: I saw him resting comfortable in bed. He said he is urinating a little bit more since the Lasix started IV. He is on ceftaroline IV antibiotics for his leg ulcers and he is eating okay. He is comfortable. No pain. PHYSICAL EXAMINATION VITAL SIGNS: A 98.8 temperature, 64 pulse, 152/79 blood pressure, 20 respiratory rate, 97% O2 sat on room air. HEENT: His head is atraumatic, normocephalic. HEART: Regular rate. LUNGS: Decreased breath sounds bilaterally. ABDOMEN: Soft, morbidly obese, nontender. EXTREMITIES: Wrapped up. He has got left foot ulcer, +4/4 pitting edema bilaterally. LABORATORY DATA: He has a 5.6 white count, 9.5 hemoglobin, 29 hematocrit with 192 platelets. INR is 4.21 and I am still holding the Coumadin until we get under 3, then we will start it up again. He has got a 141 sodium, potassium is 4, BUN 18, creatinine 1.3, GFR is 58, sugar is 120, calcium is 8.5, total bilirubin is 1, AST is 34, ALT is 35, alkaline phosphatase is 113, total protein 7.3. He has UTI also and he is on antibiotics. He is being seen by Infectious Disease and Dr. Swenson today, then Dr. Shetty today also. His chest x-ray said no active disease at this time and his foot x-ray says posterior plantar ulcer, amputation of first and second digits. Hopefully, he will continue to improve with IV antibiotics, we have to diurese him. He has got CHF. We will continue aggressive treatment and care as per Podiatry. Kevin Gleason DO
[2017-12-17] MEDS ORDERED: Gadodiamide 287 MG/ML VIAL (20ML) IV ONE (15:48)
--- NOTE | 2017-12-17 16:57 | MRI ---
PROCEDURE: MRI of the left foot with and without contrast HISTORY: left diabetic heel ulcer COMPARISON: TECHNIQUE: MRI of the left foot and ankle was performed in multiple planes using multiple pulse sequences. 20 cc of Omniscan were injected FINDINGS: There is a soft tissue ulcer on the plantar aspect of the heel. There is no associated marrow edema or enhancement in the calcaneus to suggest osteomyelitis. The Achilles tendon and plantar fascia are unremarkable. IMPRESSION: No evidence of osteomyelitis
--- NOTE | 2017-12-17 17:53 | US ---
PROCEDURE: Lower extremity CHE exam HISTORY: Peripheral vascular disease. Recent left toe amputations. PHYSICIAN(S): Mauro Reeves MD. FINDINGS: A limited CHE and distal waveform exam was performed. The resting ABIs are normal: Right, 1.32 and left, 1.38 The ankle and metatarsal waveforms are relatively normal and symmetric. IMPRESSION: 1. Limited distal study. 2. The resting ABIs are normal. 3. The distal PVR waveforms are normal and symmetric
--- NOTE | 2017-12-18 00:39 | CON ---
DATE: HISTORY OF PRESENT ILLNESS: A 52-year-old diabetic male, well known to the [facility] wound care team, was seen in Dr. Shetty's office for a left diabetic heel ulceration with accompanying cellulitis. He stated that he noticed increased foot and leg swelling over the last 2 weeks and called for appointment. Upon examination, he was advised to go to the ER immediately. The patient is seen at bedside today and denies any fever, chills, nausea or vomiting. He has not had any shortness of breath. MEDICAL HISTORY: Significant for type 2 diabetes with peripheral vascular disease and peripheral neuropathy, morbid obesity, numerous bouts of lower extremity cellulitis, essential hypertension and history of pulmonary embolism. SURGICAL HISTORY; Includes pedal amputations on his left foot in late 2016/early 2017 secondary to osteomyelitis. HOME MEDICATIONS: All medications noted in DEC. SOCIAL HISTORY: The patient is . Does not drink alcohol. Do not use illicit drugs. Does not smoke. OBJECTIVE: VITAL SIGNS: Reveal a temperature of 98.1, pulse rate of 68, blood pressure of 159/78, respiratory rate 18. EXTREMITIES: Weakly palpable pedal pulse is noted on the right lower extremity and nonpalpable pedal pulse is noted on the left lower extremity. Left lower extremity presents with +2 nonpitting lower extremity edema. The patient is noted to have amputated first and second digits on the left foot. The patient is unable to detect 5.07 g monofilament wire testing. There is a gangrenous ulceration on the plantar aspect of the left foot that measures approximately 3 cm x 3 cm x 0.1 cm. There is no malodor. There is noted to be serous drainage. There is no purulence. The wound does not probe to tendon or bone. LABORATORY DATA: Reveal a white count of 5.6, hemoglobin of 9.5, hematocrit of 29, platelet count of 182 and his ESR is elevated at 70. Venous Doppler reveal no radiographic evidence of deep vein thrombosis. Left foot x-rays reveal no radiographic evidence of osteomyelitis at the calcaneus. ASSESSMENT: Gangrenous diabetic left heel ulceration. PLAN: The patient's wound was examined. Culture was taken and submitted for sensitivities. Culture taken yesterday, 12/16/2017, reveals no polymorphonuclear white blood cells and no organisms. Reviewed x-rays. We will order MRI for further specificity arterial Dopplers needed to ascertain lower extremity perfusion. We will order a reverse heel wedge shoe to offload the left heel along with formal type boots to be applied when patient is in bed. A consultation with Dr. Mauro Reeves for evaluation of arterial Dopplers, which will be ordered today. The patient's wound will be seen and followed daily and we will await vascular results and vascular input. Shaun Gabriel DPM MTDYaya
--- NOTE | 2017-12-18 03:51 | CON ---
DATE: 12/17/2017 LOCATION: Patient seen early this morning in room 260, bed 2. CHIEF COMPLAINT: Left foot infection of 1 week duration. HISTORY OF PRESENT ILLNESS: This is a 52-year-old male with past medical history significant for hypertension, history of pulmonary emboli, history of diabetes, morbid obesity with a BMI of 50, history of left foot osteomyelitis and who was admitted through the emergency room sent by Dr. Shetty for a left foot infection. REVIEW OF SYSTEMS: Reveals no fevers, no chills. No nausea, no vomiting. No abdominal pain. No headaches or blurred vision. PAST MEDICAL HISTORY: Significant for coronary artery disease, diabetes mellitus, hypertension, osteomyelitis of left foot, pulmonary emboli, morbid obesity, BMI of 52. PAST SURGICAL HISTORY: Significant for first ray amputation, left foot. MEDICATIONS: The patient's medications at home include Lasix and potassium. The patient is also on Coumadin as outpatient. ALLERGIES: THE PATIENT HAS NO KNOWN ALLERGIES. PHYSICAL EXAMINATION: VITAL SIGNS: The patient seen earlier this morning in 260, bed 2 with a temperature of 98, blood pressure is 159/70, respiratory rate of 18, heart rate was up to 93. HEENT: Unremarkable. NECK: Supple. LUNGS: Have decreased breath sounds. HEART: Normal S1, S2. ABDOMEN: Soft, nontender. No organomegaly, no rebound, no guarding or masses. LABORATORY DATA: Reveals a white count of 7.8, hemoglobin of 9, platelets of 192 and 68% granulocytosis. The patient's sed rate is 70. Coagulation is noted with INR of 4.48. Chemistries reveals a BUN of 18, creatinine of 1.3 with a C-reactive protein greater than 15. The patient has had a history of renal disease with creatinine up to 2.3-2.4 range. Urinalysis reveals proteinuria, large blood and there is RBCs and many bacteria. Microbiology reveals the blood cultures are no growth from yesterday. Toe cultures in the past, 1 year ago, had Staph aureus and Enterococcus faecalis. The Staph aureus was sensitive Staph aureus. Two years ago, the patient had MRSA in the left foot. The patient also had Elizabeth in the urine and in September 2016 the patient had Streptococcus sanguinis group in the blood. On examination, the patient's temperature of 98 as stated and on the examination of the left foot heel is a large ulcer, mild erythema around it, and no discharge. The patient had a chest x-ray, which is no active pulmonary disease, and foot x-ray, which showed subcutaneous ulcer, posterior calcaneus. Dr. Gleason's progress note from today is reviewed and Dr. Gleason's history of physical examination is reviewed. ASSESSMENT AND PLAN: This is a 52-year-old male with morbid obesity, BMI of 62.4, diabetes mellitus, hypertension, pulmonary emboli, history of coronary artery disease and left foot osteomyelitis, presenting with a large left foot ulcer approximately 5-6 cm in diameter with surrounding cellulitis and with renal insufficiency. We will treat the patient with ceftaroline and adjust the dosing for renal insufficiency. I agree with MRI of the foot to rule out osteomyelitis and arterial Dopplers for evaluating the arterial blood supply to the foot, podiatric care and vascular consultation, and I will check on the wound cultures and the final blood cultures which are reported be at 24 hours negative and we will make further recommendations with you. Monico Molina MD
[2017-12-18 06:29] LABS: HEMOGLOBIN 9.2 g/dL (14.0-18.0); MEAN CELL VOLUME 92.7 fl (80.0-105.0); MEAN CORPUSCULAR HEMOGLOBIN 29.4 pg (25.0-35.0); MEAN CORPUSCULAR HGB CONC 31.7 g/dl (31.0-37.0); MEAN PLATELET VOLUME 10.4 fl (7.0-11.0); RBC 3.13 10^6/uL (3.5-6.1); RED CELL DISTRIBUTION WIDTH 16.4 % (11.5-14.5)
[2017-12-18 06:52] LABS: ALB/GLOB RATIO 0.7 (1.1-1.8); CALCIUM 8.7 mg/dL (8.4-10.5)
[2017-12-18 06:58] LABS: INR 2.85 (0.93-1.08); PROTHROMBIN TIME 33.5 SECONDS (9.4-12.5)
[2017-12-18] MEDS: Insulin Reg-MEDIUM-Coverage SC SCH ×4 (07:56→22:07)
[2017-12-18] MEDS: Potassium Chloride 20 mEq ER Tab PO SCH (09:42)
--- NOTE | 2017-12-18 11:53 | CP.PCM.PN ---
Subjective - Date & Time of Evaluation Date of Evaluation: 12/18/17 Time of Evaluation: 10:00 - Subjective Subjective: Podiatry Progress Note- Dr. Shetty 52 y.o male with DM, CHF, history of PE, HTN seen at bedside for left heel ulceration with cellulitis. Patient is seen resting comfortably in bed, in NAD, and AA0x3. Patient denies acute overnight events. Dressing to the left LE is c/d /i with serous strikethrough. Patient denies chills, nausea, fever, vomiting, shortness of breath, or chest pain. Objective - Vital Signs/Intake and Output Vital Signs (last 24 hours): Temp Pulse Resp BP Pulse Ox 99 F 90 20 127/79 97 12/18/17 05:55 12/18/17 05:55 12/18/17 05:55 12/18/17 09:41 12/18/17 05:55 Intake and Output: 12/18/17 12/18/17 06:59 18:59 Intake Total 340 Output Total 600 Balance -260 - Medications Medications: Current Medications Furosemide (Lasix) 40 mg IVP BID [facility] Last Admin: 12/18/17 09:41 Dose: 40 mg Ceftaroline Fosamil 400 mg/ (Sodium Chloride) 100 mls @ 100 mls/hr IVPB Q12 ROSENDA PRN Reason: Protocol Stop: 12/23/17 22:01 Last Admin: 12/18/17 09:41 Dose: 100 mls/hr Insulin Human Regular (Humulin R Med) 0 units SC ACHS ROSENDA PRN Reason: Protocol Last Admin: 12/18/17 07:56 Dose: Not Given Potassium Chloride (K-Dur 20 Meq Er Tab) 20 meq PO DAILY [facility] Last Admin: 12/18/17 09:42 Dose: 20 meq Warfarin Sodium (Coumadin) 6 mg PO 1800 [facility] PRN Reason: Protocol - Labs Labs: 12/18/17 06:00 12/18/17 06:00 PT 33.5 SECONDS (9.4-12.5) H 12/18/17 06:00 INR 2.85 (0.93-1.08) H 12/18/17 06:00 APTT 47.4 Seconds (25.1-36.5) H 12/16/17 15:45 - Constitutional Appears: Well, Non-toxic, No Acute Distress - Extremities Exam Extremities Exam: absent: Calf Tenderness Additional comments: Left lower extremity focused examination: Vasc: DP and PT unpalpable secondary to edema, 2+ pitting edema noted, Temperature gradient WNL Ortho: no pain with palpation of the heel, no pain or tenderness with calf squeeze, patient had amputated 1st and 2nd digit Neuro: gross and protective sensation diminished Derm: eschar noted to the plantar aspect of left heel, measuring approximately 5cm x 5 cm x .1 cm, the periwound is intact but slightly macerated, there is no purulence or malodor noted. Serous drainage noted; no increase calor, the wound does not probe to bone - Neurological Exam Neurological Exam: Alert, Awake, Oriented x3 - Psychiatric Exam Psychiatric exam: Normal Affect, Normal Mood Assessment and Plan - Assessment and Plan (Free Text) Assessment: 52 y.o male with DM, CHF, lymphedema seen at bedside for left heel gangrene unstageable ulcer with cellulitis. Plan: -Patient examined and evaluated -Discussed plan in detail with attending Dr. Shetty -Labs, vitals, chart reviewed-WBC=6.0, afebrile -Wound culture pending- preliminary gram positive cocc -Ordered reverse heel wedge shoe to offload left heel -X-ray: posterior heel ulceration -MRI: no OM -Arterial duplex Impression: Limited distal study, resting ABIs normal, distal PVR waveform are normal and symmetric -F/U vascular consult -Multipodus seen at bedside. Educated patient on importance of multipodus boots -Entire L LE cleansed with saline solution and dressed with xerform, dsd, ABD, and kerlix -Continue abx per ID -Will continue to follow while in house
--- NOTE | 2017-12-18 12:04 | PN ---
DATE: SUBJECTIVE: I saw Connor resting comfortably in bed. He slept fairly well. He is eating well. His legs look a little bit more swollen. He in no pain. OBJECTIVE VITAL SIGNS: He has a 99 temperature, 90 pulse, 131/80 blood pressure, 20 respiratory rate, 97% O2 saturation on room air. HEENT: His head is atraumatic, normocephalic. Throat is moist. NECK: Supple. HEART: Regular rate. LUNGS: Decreased breath sounds. ABDOMEN: Morbidly obese, soft, nontender. Positive bowel sounds. EXTREMITIES: Left leg is swollen. Both feet look much more swollen than yesterday. He is currently on ceftaroline IV. I put him back on warfarin 6 mg, potassium and Lasix. I will increase his Lasix to 40 mg b.i.d. I think he is more swollen today. He has got 141 sodium, potassium 4.2, BUN 21, creatinine 1.5. GFR is 49, sugar is 146, calcium is 8.7, total bili is 0.9, AST is 31, ALT 32, alkaline phosphatase 112, total protein 7.3. INR came down to 2.85. He was taking Coumadin . Check his labs tomorrow. DATA: White count 6, hemoglobin 9.2, hematocrit 29, platelets 187,000. He was seen by Infectious Disease, Podiatry. Still waiting for Cardiology to address his CHF and swelling. Hopefully, today. We will continue as per Infectious Disease and Podiatry. He has a left leg ulcer, obesity, CHF and urinary tract infection. We will get him out of bed to chair later. Kevin Gleason DO S[facility]
--- NOTE | 2017-12-18 14:21 | CON ---
DATE: 12/18/2017 CARDIOLOGY CONSULTATION HISTORY OF PRESENT ILLNESS: The patient is a 52-year-old male who presents with marked edema in the lower extremities. PAST MEDICAL HISTORY: Notable for morbid obesity, diabetes mellitus, progressive shortness of breath while walking. He denies chest pain. He has been suffering from foot ulcers and has been treated by Podiatry. Denies angina. No previous myocardial infarction. SOCIAL HISTORY: The patient denies smoking. REVIEW OF SYSTEMS: A 14-point review of systems was reviewed. No additional cardiac symptomatology is noted. PHYSICAL EXAMINATION: VITAL SIGNS: Blood pressure is 131/80, heart rates in the 90s. NECK: Negative JVD. LUNGS: Without rales. HEART: Reveals S1, S2. Normal sinus rhythm with diffuse ST-T changes. EXTREMITIES: Marked edema in lower extremities with bandages in the lower extremities. LABORATORY DATA: Glucose is 146, hemoglobin is 9.2. IMPRESSION: 1. Marked pedal edema. 2. Foot ulcers. 3. Anemia. 4. Diabetes mellitus. 5. Morbid obesity. PLAN: Given these findings, we will increase his Lasix to 40 b.i.d. We will obtain an echocardiogram for LV function. Mauro Swenson MD
--- NOTE | 2017-12-18 21:25 | PN ---
DATE: 12/18/2017 SUBJECTIVE: The patient is in bed, in no acute distress. The patient is seen early this morning in room 260, bed. No fevers. No chills. PHYSICAL EXAMINATION: VITAL SIGNS: Temperature is 99, blood pressure is 159/80, respiratory rate of 20, heart rate is 90. HEENT: Examination of HEENT is unremarkable. NECK: Supple. LUNGS: Have decreased breath sounds. HEART: Normal S1 and S2. ABDOMEN: Soft. LABORATORY DATA: Laboratory examination reveals a white count of 6, hemoglobin of 9, platelets 187. Chemistries reveals a BUN of 21, creatinine of 1.5. Urinalysis is noted. Microbiology is noted. There is a foot culture with a gram-positive cocci. Blood cultures are negative. MEDICATIONS: The patient is currently on ceftaroline. ASSESSMENT AND PLAN: A 52-year-old male who was seen early this morning in room 260 bed 2 with history of morbid obesity, body mass index of 62; diabetes mellitus; hypertension; pulmonary emboli; he has got coronary artery disease; left foot osteomyelitis; presented with a large left foot ulcer, approximately 5 to 6 cm and surrounding cellulitis with renal insufficiency with a gram-positive cocci in the Gram stain and cultures. Further identification and sensitivity pending and on ceftaroline. The patient had an MRI of the foot, which reveals no evidence of osteomyelitis and Dr. Correa's [place] note is reviewed and left heel gangrene unstageable ulcer and cellulitis in a diabetic. We will follow with you. We will check on the identification of gram-positive cocci and sensitivity. Monico Molina MD
[2017-12-19 00:26] VITALS: O2SAT 95
[2017-12-19 06:33] LABS: HEMOGLOBIN 9.3 g/dL (14.0-18.0); MEAN CELL VOLUME 92.8 fl (80.0-105.0); MEAN CORPUSCULAR HEMOGLOBIN 29.2 pg (25.0-35.0); MEAN CORPUSCULAR HGB CONC 31.5 g/dl (31.0-37.0); MEAN PLATELET VOLUME 10.2 fl (7.0-11.0); RBC 3.18 10^6/uL (3.5-6.1); RED CELL DISTRIBUTION WIDTH 16.3 % (11.5-14.5); WHITE BLOOD COUNT 8.3 10^3/ul (4.5-11.0)
[2017-12-19 06:57] LABS: INR 1.93 (0.93-1.08); PROTHROMBIN TIME 22.5 SECONDS (9.4-12.5)
[2017-12-19 07:15] LABS: ALB/GLOB RATIO 0.7 (1.1-1.8); ALBUMIN 3.1 g/dL (3.0-4.8); CALCIUM 9.2 mg/dL (8.4-10.5)
[2017-12-19] MEDS: Insulin Reg-MEDIUM-Coverage SC SCH ×4 (07:46→21:26)
[2017-12-19] MEDS: Potassium Chloride 20 mEq ER Tab PO SCH (09:23)
--- NOTE | 2017-12-19 16:13 | CP.PCM.PN ---
Subjective - Date & Time of Evaluation Date of Evaluation: 12/19/17 Time of Evaluation: 16:10 - Subjective Subjective: Podiatry Progress Note- Dr. Shetty 52 y.o male with DM, CHF, history of PE, HTN seen at bedside for left heel ulceration with cellulitis. Patient is seen resting comfortably in bed, in NAD, and AA0x3. Patient denies acute overnight events. Dressing to the left LE is c/d /i with serous strikethrough. Patient denies chills, nausea, fever, vomiting, shortness of breath, or chest pain. Objective - Vital Signs/Intake and Output Vital Signs (last 24 hours): Temp Pulse Resp BP Pulse Ox 98.8 F 89 18 143/89 95 12/19/17 12:00 12/19/17 14:00 12/19/17 12:00 12/19/17 12:00 12/19/17 05:54 Intake and Output: 12/19/17 12/19/17 06:59 18:59 Intake Total 340 720 Output Total 1400 1100 Balance -1060 -380 - Medications Medications: Current Medications Furosemide (Lasix) 40 mg IVP BID [facility] Last Admin: 12/19/17 09:24 Dose: 40 mg Ceftaroline Fosamil 400 mg/ (Sodium Chloride) 100 mls @ 100 mls/hr IVPB Q12 ROSENDA PRN Reason: Protocol Stop: 12/23/17 22:01 Last Admin: 12/19/17 11:20 Dose: 100 mls/hr Insulin Human Regular (Humulin R Med) 0 units SC ACHS ROSENDA PRN Reason: Protocol Last Admin: 12/19/17 12:21 Dose: 1 units Potassium Chloride (K-Dur 20 Meq Er Tab) 20 meq PO DAILY [facility] Last Admin: 12/19/17 09:23 Dose: 20 meq Warfarin Sodium (Coumadin) 5 mg PO 1800 ROSENDA PRN Reason: Protocol Warfarin Sodium (Coumadin) 2 mg PO 1800 ROSENDA PRN Reason: Protocol - Labs Labs: 12/19/17 05:30 12/19/17 05:30 PT 22.5 SECONDS (9.4-12.5) H 12/19/17 05:30 INR 1.93 (0.93-1.08) H 12/19/17 05:30 APTT 47.4 Seconds (25.1-36.5) H 12/16/17 15:45 - Constitutional Appears: Well, Non-toxic, No Acute Distress - Extremities Exam Extremities Exam: absent: Calf Tenderness Additional comments: Left lower extremity focused examination: Vasc: DP and PT unpalpable secondary to edema, 2+ pitting edema noted, Temperature gradient WNL Ortho: no pain with palpation of the heel, no pain or tenderness with calf squeeze, patient had amputated 1st and 2nd digit Neuro: gross and protective sensation diminished Derm: eschar noted to the plantar aspect of left heel, measuring approximately 3cm x 3 cm x .1 cm, has gotten smaller, the periwound is intact but slightly macerated, there is no purulence or malodor noted. Serous drainage noted; no increase calor, the wound does not probe to bone Superficial ulceration on the anterior leg, macerated. no probe to bone, no erythema, purulence, serous drainage - Neurological Exam Neurological Exam: Alert, Awake, Oriented x3 - Psychiatric Exam Psychiatric exam: Normal Affect, Normal Mood Assessment and Plan - Assessment and Plan (Free Text) Assessment: 52 y.o male with DM, CHF, lymphedema seen at bedside for left heel gangrene unstageable ulcer and superficial anterior leg ulceration with cellulitis- improving. Plan: -Patient examined and evaluated -Discussed plan in detail with attending Dr. Shetty -Labs, vitals, chart reviewed-WBC=6.0, afebrile -Entire L LE cleansed with saline solution, applied orthoshield -Plan for bedside debridement of heel ulceration -Anterior leg ulceration cleansed and maxsorb and dsd applied -Wound culture pending- preliminary gram positive cocc -Ordered reverse heel wedge shoe to offload left heel -c/w pt -X-ray: posterior heel ulceration -MRI: no OM -Arterial duplex Impression: Limited distal study, resting ABIs normal, distal PVR waveform are normal and symmetric -Multipodus seen at bedside. Educated patient on importance of multipodus boots -Continue abx per ID -Will continue to follow while in house
--- NOTE | 2017-12-19 17:29 | CARD ---
APPROVED REPORT EXAM: Two-dimensional and M-mode echocardiogram with Doppler and color Doppler. INDICATION Congestive Heart Failure 2D DIMENSIONS Left Atrium (2D)5.9 (1.6-4.0cm)IVSd1.4 (0.7-1.1cm) LVDd6.2 (3.9-5.9cm)PWd1.3 (0.7-1.1cm) LVDs5.1 (2.5-4.0cm)FS (%) 17.8 % LVEF (%)36.5 (>50%) M-Mode DIMENSIONS Aortic Root3.00 (2.2-3.7cm)Aortic Cusp Exc.2.00 (1.5-2.0cm) Aortic Valve AoV Peak Lntsrmmu011.0cm/Estefanía Peak GR.16mmHgAI P 1/2 [id number] Mitral Valve MV E Vkpyhmld008.0cm/sMV A Emtfzkby02.2cm/sE/A ratio2.0 TDI Lateral E' Peak V12.80cm/sMedial E' Peak V6.73cm/sE/Lateral E'9.9 E/Medial E'18.9 Pulmonary Valve PV Peak Cydvbkek13.6cm/sPV Peak Grad.2mmHg Tricuspid Valve TR Peak Tjbefcuk522ro/sRAP DASRHOZZ67awOpVF Peak Gr.57mmHg [id number] LEFT VENTRICLE The Left Ventricle is moderately dilated. There is mild concentric left ventricular hypertrophy. The systolic function is severely impaired. There is global hypokinesis of the left ventricle. The left ventricular diastolic function is normal. No left ventricle thrombus noted on this study. RIGHT VENTRICLE The right ventricle is mildly dilated. There is normal right ventricular wall thickness. RV Systolic function is moderately to severely reduced. ATRIA The left atrium is moderately dilated. The right atrium is moderately dilated. AORTIC VALVE The aortic valve is not well visualized. There is moderate aortic regurgitation. There is no aortic valvular stenosis. MITRAL VALVE Mitral regurgitation is mild to moderate. TRICUSPID VALVE There is moderate tricuspid regurgitation. There is moderate pulmonary hypertension. GREAT VESSELS The aortic root is normal in size. PERICARDIAL EFFUSION There is no pericardial effusion. <Conclusion> The Left Ventricle is moderately dilated. There is mild concentric left ventricular hypertrophy. The systolic function is severely impaired. There is global hypokinesis of the left ventricle. The left ventricular diastolic function is normal. The right ventricle is mildly dilated. RV Systolic function is moderately to severely reduced. There is moderate aortic regurgitation. Mitral regurgitation is mild to moderate. There is moderate tricuspid regurgitation. There is moderate pulmonary hypertension.
--- NOTE | 2017-12-19 17:57 | PN ---
DATE: 12/19/2017 SUBJECTIVE: The patient is breathing without issues. His edema is slightly improved. PHYSICAL EXAMINATION VITAL SIGNS: Blood pressure is 143/89, the heart rates in the 80s. NECK: Negative JVD. LUNGS: Decreased breath sounds. HEART: Reveals S1, S2. EXTREMITIES: Unchanged. LABORATORY DATA: BUN and creatinine is 25 and 1.6, potassium is 4.2. The glucose is 131, hemoglobin is 9.3. Preliminary echocardiogram reveals an ejection fraction of 35% with moderate to severe pulmonary hypertension. IMPRESSION: 1. Marked pedal edema secondary to #2. 2. Moderate to severe pulmonary hypertension. 3. Foot ulcers. 4. Dilated cardiomyopathy. 5. Diabetes mellitus. 6. Morbid obesity. 7. Anemia. PLAN: Given these findings, I have discussed with the patient the findings. We will continue the IV Lasix. Once his ulcers have improved, has been treated, we will need to consider a stress test to rule out significant coronary artery disease as a cause of his cardiomyopathy. Mauro Swenson MD
--- NOTE | 2017-12-19 18:47 | PN ---
DATE: 12/19/2017 SUBJECTIVE: The patient is in bed, in no acute distress, nontoxic. PHYSICAL EXAMINATION: VITAL SIGNS: On exam, temperature is 98, blood pressure is 140/80, respiratory rate of 18, heart rate of 83. HEENT: Unremarkable. NECK: Supple. LUNGS: Have decreased breath sounds. HEART: Normal S1, S2. ABDOMEN: Soft, nontender. LABORATORY EXAMINATION: Reveals a white count of 8.3, hemoglobin of 9. Coagulation is noted. Chemistries reveal a BUN of 25, creatinine of 1.6. Urinalysis is noted. Microbiology reveals the patient has Staph aureus and enterococcus and sensitivity is pending. Review of the medications reveals that the patient is on ceftaroline. ASSESSMENT AND PLAN: This is a 52-year-old male, who was seen early this morning in 260, bed 2 with morbid obesity, BMI of 62, diabetes mellitus, hypertension, pulmonary emboli, coronary artery disease and left foot osteomyelitis, presented with a large left foot ulcer approximately 5-6 cm of surrounding cellulitis, renal insufficiency with Staph aureus and Enterococcus further identification and sensitivity pending, and with an MRI which has no evidence of osteomyelitis, will continue ceftaroline pending follow closely with you. Monico Molina MD
[2017-12-20 06:55] LABS: HEMOGLOBIN 9.3 g/dL (14.0-18.0); MEAN CELL VOLUME 91.7 fl (80.0-105.0); MEAN CORPUSCULAR HEMOGLOBIN 29.7 pg (25.0-35.0); MEAN CORPUSCULAR HGB CONC 32.4 g/dl (31.0-37.0); MEAN PLATELET VOLUME 10.1 fl (7.0-11.0); RBC 3.13 10^6/uL (3.5-6.1); RED CELL DISTRIBUTION WIDTH 16.1 % (11.5-14.5)
[2017-12-20 07:18] LABS: ALB/GLOB RATIO 0.7 (1.1-1.8)
[2017-12-20 07:22] LABS: PROTHROMBIN TIME 19.8 SECONDS (9.4-12.5)
[2017-12-20 07:23] LABS: INR 1.7 (0.93-1.08)
[2017-12-20] MEDS: Insulin Reg-MEDIUM-Coverage SC SCH ×3 (08:17→16:52)
--- NOTE | 2017-12-20 09:20 | PN ---
DATE: 12/19/2017 SUBJECTIVE: I saw him resting comfortably in bed. IV antibiotics are infusing. He is eating his breakfast. He tells me he is feeling fairly well. He is being seen by Infectious Disease, Podiatry, and Cardiology. He has a left leg ulcer, CHF, and UTI. He has marked toe edema, foot ulcers. Clinical Registered Nurse increased the IV Lasix to twice a day. PHYSICAL EXAMINATION: GENERAL: Alert and oriented x3. VITAL SIGNS: He has 99 temperature, 83 pulse, 139/67 blood pressure, 20 respiratory rate, 97% O2 sat on room air. HEENT: Head is atraumatic, normocephalic. Throat is moist. NECK: Supple. HEART: Regular rate. LUNGS: Decreased breath sounds, but clear. ABDOMEN: Soft, morbidly obese, nontender. Positive bowel sounds. No guarding. No rebound. No CVA tenderness. EXTREMITIES: +4/4 pitting edema, left foot is bandaged ulcer. MEDICATIONS: He is currently on ceftaroline, Coumadin, insulin, potassium, and Lasix. LABORATORY DATA: Today, 140 sodium, potassium 4.2. BUN 25, creatinine 1.6, little bit elevated, Blood sugar 131, better . Calcium 9.2. Total bili is 1, AST is 29, ALT is 25, alk phos 126, total protein 7.5. He has UTI. His INR is at 1.93. He has an 8.3 white count, 9.3 hemoglobin, 29.5 hematocrit with 189 platelets. He is currently on warfarin 6 mg, I am going to change it to 7 mg. We will check his labs tomorrow antibiotics. I will discharge him as per Infectious Disease and since Podiatry put him in the hospital to see if they want to do any I and D or any procedure. Kevin Gleason DO MTDYaya
[2017-12-20] MEDS: Potassium Chloride 20 mEq ER Tab PO SCH (10:20)
--- NOTE | 2017-12-20 10:52 | CP.PCM.PN ---
Subjective - Date & Time of Evaluation Date of Evaluation: 12/20/17 Time of Evaluation: 10:42 - Subjective Subjective: Podiatry Progress Note- Dr. Shetty 52 y.o male with DM, CHF, history of PE, HTN seen at bedside for left heel ulceration with cellulitis-resolving. Patient is seen resting comfortably in bed , in NAD, and AA0x3. Patient denies acute overnight events. Dressing to the left LE is c/d/i with strikethrough. Patient denies chills, nausea, fever, vomiting, shortness of breath, or chest pain. Objective - Vital Signs/Intake and Output Vital Signs (last 24 hours): Temp Pulse Resp BP Pulse Ox 99.7 F H 87 18 142/87 95 12/20/17 06:00 12/20/17 06:00 12/20/17 06:00 12/20/17 10:20 12/20/17 06:00 Intake and Output: 12/20/17 12/20/17 06:59 18:59 Intake Total 680 Output Total 1500 Balance -820 - Medications Medications: Current Medications Furosemide (Lasix) 40 mg IVP BID [facility] Last Admin: 12/20/17 10:20 Dose: 40 mg Ceftaroline Fosamil 400 mg/ (Sodium Chloride) 100 mls @ 100 mls/hr IVPB Q12 ROSENDA PRN Reason: Protocol Stop: 12/23/17 22:01 Last Admin: 12/20/17 10:20 Dose: 100 mls/hr Insulin Human Regular (Humulin R Med) 0 units SC ACHS ROSENDA PRN Reason: Protocol Last Admin: 12/20/17 08:17 Dose: Not Given Potassium Chloride (K-Dur 20 Meq Er Tab) 20 meq PO DAILY [facility] Last Admin: 12/20/17 10:20 Dose: 20 meq Warfarin Sodium (Coumadin) 8 mg PO 1800 ROSENDA PRN Reason: Protocol - Labs Labs: 12/20/17 06:49 12/20/17 06:49 PT 19.8 SECONDS (9.4-12.5) H 12/20/17 06:00 INR 1.70 (0.93-1.08) H 12/20/17 06:00 APTT 47.4 Seconds (25.1-36.5) H 12/16/17 15:45 - Constitutional Appears: Well, Non-toxic, No Acute Distress - Extremities Exam Extremities Exam: absent: Calf Tenderness Additional comments: Left lower extremity focused examination: Vasc: DP and PT unpalpable secondary to edema, 2+ pitting edema noted, Temperature gradient WNL Ortho: no pain with palpation of the heel, no pain or tenderness with calf squeeze, patient had amputated 1st and 2nd digit Neuro: gross and protective sensation diminished Derm: eschar noted to the plantar aspect of left heel, measuring approximately 3cm x 3 cm x .1 cm, has gotten smaller, the periwound is intact but slightly macerated, there is no purulence or malodor noted. Serous drainage noted; no increase calor, the wound does not probe to bone Superficial ulceration on the anterior leg as well as lateral leg, macerated. no probe to bone, no erythema, purulence, serous drainage Assessment and Plan - Assessment and Plan (Free Text) Assessment: 52 y.o male with DM, CHF, lymphedema seen at bedside for left heel gangrene unstageable ulcer and superficial anterior leg ulceration with cellulitis- improving. Plan: -Patient examined and evaluated -Discussed plan in detail with attending Dr. Shetty -Labs, vitals, chart reviewed-WBC=6.0 on 12/20/17, afebrile -Debridement of most nonviable tissue from left heel ulceration with #15 blade to the level of subcutaneous tissue. Patient tolerated the procedure well. No complications. Cleansed with saline solution, applied xeroform, dsd, ABD, and kerlix -Entire L LE cleansed with saline solution, maxosorb applied to anterior and lateral ulceration -Anterior leg ulceration cleansed and maxsorb and dsd applied -After debridement wound culture taken on 12/20/17 -Wound culture pending- preliminary gram positive cocc -Patient given surgical shoe -offloading modification attached to surgical shoe to offload heel ulceration -c/w pt -X-ray: posterior heel ulceration -MRI: no OM -Arterial duplex Impression: Limited distal study, resting ABIs normal, distal PVR waveform are normal and symmetric -Multipodus seen at bedside. Educated patient on importance of multipodus boots -Continue abx per ID -Will continue to follow while in house -Ordered Santyl for dressing change tomorrow if patient is still in house -When discharge: keep dressing c/d/i. Do not get wet. Do not change. -Pt to follow up in wound care center on Saturday12/23/[address] Shetty
[2017-12-20] MEDS ORDERED: Collagenase 250 Units/gm Ointment(30 gm) TOP SCH (11:15)
[2017-12-20] MEDS ORDERED: Pneumococcal 23-Valent Vaccine IM ONE (11:29)
[2017-12-20] MEDS ORDERED: Influenza Vaccine 60 mcg/0.5 mL SYR (4YR UP) IM ONE (11:29)
[2017-12-20] MEDS ORDERED: Unna Boot TOP ONE (12:21)
--- NOTE | 2017-12-20 13:16 | PN ---
DATE: 12/20/2017 CARDIOLOGY FOLLOWUP SUBJECTIVE: The patient is sitting in bed without shortness of breath. His wound is being cared for. His edema in the lower extremity is marked, but chronic. PHYSICAL EXAMINATION: VITAL SIGNS: Blood pressure is 142/87, the heart rate is in the 80s. NECK: Negative JVD. LUNGS: Decreased breath sounds without rales. HEART: S1, S2. EXTREMITIES: Marked chronic edema in the lower extremities with ulcers. LABORATORY DATA: Hemoglobin is 9.3. Chemistries, potassium is 4.2, BUN and creatinine is unchanged. IMPRESSION: 1. Severe and chronic pedal edema. 2. Morbid obesity. 3. Marked pulmonary hypertension. 4. Dilated cardiomyopathy. 5. Diabetes mellitus. 6. Anemia. PLAN: Given these findings, we will continue the IV Lasix. The patient is on continued wound care. We will discontinue telemetry today. Mauro Swenson MD
--- NOTE | 2017-12-20 13:29 | CP.PCM.PN ---
Subjective - Date & Time of Evaluation Date of Evaluation: 12/20/17 Time of Evaluation: 10:50 - Subjective Subjective: Comfortable, less pain in the legs, no fevers, no nausea, no diarrhea. Objective - Vital Signs/Intake and Output Vital Signs (last 24 hours): Temp Pulse Resp BP Pulse Ox 99.7 F H 87 18 142/87 95 12/20/17 06:00 12/20/17 06:00 12/20/17 06:00 12/20/17 10:20 12/20/17 06:00 Intake and Output: 12/20/17 12/20/17 06:59 18:59 Intake Total 680 Output Total 1500 Balance -820 - Medications Medications: Current Medications Furosemide (Lasix) 40 mg IVP BID [facility] Last Admin: 12/20/17 10:20 Dose: 40 mg Ceftaroline Fosamil 400 mg/ (Sodium Chloride) 100 mls @ 100 mls/hr IVPB Q12 ROSENDA PRN Reason: Protocol Stop: 12/23/17 22:01 Last Admin: 12/20/17 10:20 Dose: 100 mls/hr Insulin Human Regular (Humulin R Med) 0 units SC ACHS ROSENDA PRN Reason: Protocol Last Admin: 12/20/17 08:17 Dose: Not Given Potassium Chloride (K-Dur 20 Meq Er Tab) 20 meq PO DAILY [facility] Last Admin: 12/20/17 10:20 Dose: 20 meq Warfarin Sodium (Coumadin) 8 mg PO 1800 ROSENDA PRN Reason: Protocol - Labs Labs: 12/20/17 06:49 12/20/17 06:49 PT 19.8 SECONDS (9.4-12.5) H 12/20/17 06:00 INR 1.70 (0.93-1.08) H 12/20/17 06:00 APTT 47.4 Seconds (25.1-36.5) H 12/16/17 15:45 - Constitutional Appears: Non-toxic - Head Exam Head Exam: NORMAL INSPECTION - Neck Exam Neck Exam: absent: Meningismus - Respiratory Exam Respiratory Exam: Decreased Breath Sounds. absent: Rales - Cardiovascular Exam Cardiovascular Exam: +S1, +S2 - GI/Abdominal Exam GI & Abdominal Exam: Soft. absent: Tenderness - Extremities Exam Additional comments: both legs with dressings in place Assessment and Plan - Assessment and Plan (Free Text) Plan: Assessment left heel gangrene with left lower extremity cellulitis, growing MSSA and E. 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
[2017-12-20 14:33] VITALS: RESP 20
--- NOTE | 2017-12-20 15:33 | PN ---
DATE: SUBJECTIVE: I saw him resting comfortably in bed. He slept well. He is in good spirits. He has no complaints. No chest pain or shortness of breath. No abdominal pain. He feels better with the Lasix 40 mg IV twice a day. He is urinating a lot. He is less swollen. He is on Coumadin. I increased it to 8 mg because his INR went down a little bit. Insulin coverage, potassium, Lasix and ceftaroline IV by Infectious Disease. PHYSICAL EXAMINATION: VITAL SIGNS: He has a 99.7 temp, 87 pulse, 142/87 blood pressure, 18 respiratory rate, 95% O2 sat on room air. HEENT: His head is atraumatic, normocephalic. Throat moist. Neck: Supple. HEART: Regular rate. LUNGS: Decreased breath sounds, but clear. ABDOMEN: Soft, morbidly obese. EXTREMITIES: With +4/4 pitting edema with the left leg with a large ulcer. He also has a UTI, left leg ulcer, obese, CHF, pulmonary hypertension, dilated cardiomyopathy. LABORATORY DATA: He has a 6 white count, 9.3 hemoglobin, 20.7 hematocrit with 188 platelets. INR is down to 1.7, it bumped after his Coumadin. He has a 139 sodium, potassium 4.2, BUN is 24, creatinine 1.7, GFR is 42, sugar is 132, calcium 9, total bili is 1, AST is 32, ALT is 34, alk phos is 127, total protein 7.6. ASSESSMENT AND PLAN: We will continue aggressive treatment and care. When I could change it to tablets, I will discharge him for outpatient care of the left leg ulcer. Continue with aggressive treatment and care on Connor Paz. We will discuss with the consults. Kevin Gleason DO
[2017-12-20 18:00] VITALS: BP 164/87; PULSE 88; TEMP 98.3
[2017-12-20] MEDS ORDERED: Amoxicillin-Clav 875-125 mg Tab PO SCH (22:00)
== END 2017-12-20 20:41 | disposition home or self-care (01) | DRG 264 ==
LOC: ED 13:42 → ERH 18:19 → 2RNO 22:57
PROVIDERS: ADMIT Family Medicine; ATTEND Family Medicine
PROC: 0JBR0ZZ Excision of Left Foot Subcutaneous Tissue and Fascia, Open Approach (ICD-10-PCS; principal; 2017-12-20)
DX: E11.52 Type 2 diabetes mellitus with diabetic peripheral angiopathy with gangrene (principal); E11.42 Type 2 diabetes mellitus with diabetic polyneuropathy; E11.621 Type 2 diabetes mellitus with foot ulcer; E66.01 Morbid (severe) obesity due to excess calories; I27.20 Pulmonary hypertension, unspecified; L03.116 Cellulitis of left lower limb; Z68.44 Body mass index [BMI] 60.0-69.9, adult; L97.429 Non-pressure chronic ulcer of left heel and midfoot with unspecified severity; I42.0 Dilated cardiomyopathy; N39.0 Urinary tract infection, site not specified; L97.529 Non-pressure chronic ulcer of other part of left foot with unspecified severity; I25.10 Atherosclerotic heart disease of native coronary artery without angina pectoris; D64.9 Anemia, unspecified; I11.0 Hypertensive heart disease with heart failure; I50.9 Heart failure, unspecified; Z86.711 Personal history of pulmonary embolism; Z79.01 Long term (current) use of anticoagulants